=== PATIENT | male | born 1950 | race Caucasian/White ===

== ENCOUNTER → 2017-03-11 | Outpatient (CLI) | payer OTHER ==
[~2017-03-11] MED LIST: ALLO300T2 PO; ASPI81TA28 PO; PRLSR20 PO; VICODIN
[2017-03-11 15:13] LABS: BASO % 0.9 %; COMPLETE YES; EOS % 0.2 %; HEMATOCRIT 43.8 % (42-52); IG% 0.3 %; LYMPH % 12.2 %; LYMPH ABS # 1.41 K/uL (1.2-3.4); MEAN CELL VOLUME 105.5 fL (80-100); MEAN CORPUSCULAR HEMOGLOBIN 37.3 pg (25-34); MEAN CORPUSCULAR HGB CONC 35.4 g/dl (32-36); MEAN PLATELET VOLUME 9.8 fL (7.4-10.4); MONO % 8.1 %; NEUT % 78.3 %; PLATELET COUNT 227 K/uL (130-400); RED BLOOD COUNT 4.15 M/uL (4.7-6.1); WHITE BLOOD COUNT 11.56 K/uL (4.8-10.8)
[2017-03-11 15:21] LABS: ALT/SGPT 19 U/L (12-78); AST/SGOT 28 U/L (15-37); BLOOD UREA NITROGEN 12 mg/dl (7-18); BUN/CREATININE RATIO 11.8 (10-20); CALCIUM 8.8 mg/dl (8.5-10.1); CARBON DIOXIDE 25 mmol/L (21-32); CHLORIDE 105 mmol/L (98-107); CHOLESTEROL 159 mg/dl (0-200); CREATININE 0.99 mg/dl (0.60-1.40); GLUCOSE 105 mg/dl (70-99); POTASSIUM 4.2 mmol/L (3.5-5.1); SODIUM 139 mmol/L (136-145)
[2017-03-11 15:31] LABS: ALB/GLOB RATIO 0.9 (0.9-2); ALKALINE PHOSPHATASE 87 U/L (45-117); CHOLESTEROL/HDL RATIO 1.5; HDL CHOLESTEROL 105 mg/dl; TRIGLYCERIDES 79 mg/dl (0-150); VERY LOW DENSITY LIPOPROT CALC 16 mg/dl
== END | disposition home or self-care (01) ==
LOC: C.LABSPEC 14:44
PROVIDERS: ATTEND Internal Medicine
DX: R53.83 Other fatigue (principal); E78.5 Hyperlipidemia, unspecified; Z13.89 Encounter for screening for other disorder

== ENCOUNTER → 2017-04-09 | Outpatient (CLI) | payer OTHER | END | disposition home or self-care (01) | LOC: C.LABSPEC 15:36 | PROVIDERS: ATTEND Internal Medicine | DX: Z12.11 Encounter for screening for malignant neoplasm of colon (principal) ==

== ENCOUNTER 2022-03-04 18:33 | Observation (INO) ==
[2022-03-04 20:24] LABS: Basophils # (auto) 0.03 K/uL (0-0.2); Basophils % (auto) 0.4 %; Eosinophils # (auto) 0.03 K/uL (0-0.50); Eosinophils % (auto) 0.4 %; Hematocrit (blood only) 24.3 % (40.1-51.0); Hemoglobin 8.7 g/dl (14.0-18.0); Immature Granulocytes # (auto) 0.04 K/uL (0.00-0.02); Immature Granulocytes % (auto) 0.5 %; Lymphocytes # (auto) 1.28 K/uL (1.2-3.4); Lymphocytes % (auto) 16.7 %; Mean Corpuscular Hemoglobin 34.8 pg (25.0-34.0); Mean Corpuscular Hgb Conc 35.8 g/dL (32.0-36.0); Mean Corpuscular Volume 97.2 fL (80.0-100.0); Monocytes # (auto) 1.19 K/uL (0.24-0.82); Monocytes % (auto) 15.6 %; Neutrophils # (auto) 5.08 K/uL (1.4-6.5); Neutrophils % (auto) 66.4 %; Platelet Count 185 K/uL (130-400); RDW Coefficient of Variation 12.6 % (11.5-14.5); RDW Standard Deviation 43.6 fL (36.4-46.3); White Blood Count 7.65 K/ul (4.8-10.8)
[2022-03-04 20:37] LABS: INR 1.1 (0.9-1.1); Partial Thromboplastin Ratio 1.1; Prothrombin Time 11.6 Seconds (9.0-12.0)
--- NOTE | 2022-03-04 20:40 | XRay Report ---
XR chest 1V portable CLINICAL HISTORY: SOB TECHNIQUE: Single frontal radiograph of the chest was obtained. Comparison: Comparison is made to chest radiograph 12/19/2021 and PET/CT 12/12/2021 FINDINGS: No lines and tubes are seen. The cardiomediastinal silhouette is stable. Left hilar mass is again see n. There is an airspace opacity in the left lower lung. There is a small left pleural effusion, new f rom prior exam. IMPRESSION: 1. Airspace opacity in the left lower lung may represent atelectasis, pneumonia, and/or aspiration. There is a small left pleural effusion. 2. Redemonstration of left hilar mass. ACT 112: Negative or not required by law. Electronically signed by: Sachin Hopkins M.D. 03/04/2022 8:37 PM
[2022-03-04 20:51] LABS: Troponin I High Sensitivity 36.6 pg/ml (0-20)
[2022-03-04] MEDS ORDERED: SODIUM CHLORIDE 0.9% 1000ML 500 ML IV ONE (20:52)
--- NOTE | 2022-03-04 20:53 | Emergency Department Note ---
Impression & Plan Pneumonia ADMIT ED Provider Note HPI: The patient is a 71-year-old gentleman with history of adenocarcinoma of the lung, currently on chemotherapy, presents the emergency department with a chief complaint of 3 days of shortness of breath. Patient states that he was di scussing his symptoms with his outpatient provider and was advised to come to the emergency department to rule out a pulmonary embolism. On arrival to the ED the patient is hemodynamically stable, he is saturating well on room air, denies any chest pain but states that his shortness of breath has acutely worsened over the past 3 days. ROS: -Pulmonary: Shortness of breath *10 point review systems was conducted and is otherwise negative unless stated above *Outpatient medications and allergy history reviewed PE: General: Alert, NAD, frail-appearing HEENT: Normocephalic, atraumatic Eyes: Extraocular eye movement is intact, no scleral erythema Pulmonary: No wheezing, no crackles, diminished breath sounds at the bases bilaterally Cardio: Regular rate and rhythm GI: Abdomen is soft, nontender : No suprapubic tenderness MSK: No evidence of trauma or malformation of the extremities, no edema Skin: No evidence of rash Neuro: Alert, no focal deficits Psychiatric: Cooperative nuclear monitoring technician: - An order was placed for continuous cardiac monitoring - Patient was noted to be in sinus rhythm with a rate of 100 CTA CHEST: Comparison CT scan of the chest 01/03/2006 Cavitary process in the left lower lobe associated with dense atelectasis/consolidation. Subtending bronchi are partially opacified suggesting either inflammatory material or aspiration, potentially chronic. The cavitary process may reflect a cavitary pneumonia. Cavitary mass lesion not excluded and definitive evaluation is recommended. When compared with prior the processes new Respiratory motion artifact degrades the study through the bases no obvious PE is identified. The subsegmental basilar pulmonary artery branches at the left lung base demonstrate gradual loss of enhancement which is a nonspecific finding, potentially related to chronic airspace process resulting in altered perfusion. Radiologist: Sachin Garza MD EKG: Rate: 82 Rhythm: Sinus rhythm Intervals: QTC prolonged at 481 ms, otherwise within normal limits ST changes: No ST elevation Time: 1943 Medical Decision Making: The patient is a 71-year-old gentleman with history of adenocarcinoma of the lung, currently on chemotherapy, presented to the emergency department for further evaluation of shortness of breath for the past 3 days. Patient states that his outpatient provider was concerned about a possible pulmonary embolism and therefore the patient was referred to the ED for CT imaging. CT angiography of the chest was obtained that shows cavitary process in the left lower lobe, possible aspiration is noted on radiology read per stat read, also possibility of cavitary pneumonia. Patient was treated with IV Unasyn and IV azithromycin here in the ED, his lab work does not show any leukocytosis but he does have a slight left shift. Cultures were drawn prior to administration of antibiotics. Lab work also shows multiple electrolyte abnormalities including hypomagnesemia at 0.7, hypocalcemia, hypokalemia. No acute EKG changes are noted, patient is otherwise stable on telemetry here in the ED. I discussed all the above findings with the patient and his significant other at the bedside, patient is in agreement for admission at this time. [facility] and the patient was admitted in stable condition for further care. Diagnosis: 1. Cavitary pneumonia, left lower lobe 2. Hypomagnesemia 3. Hypocalcemia 4. Hypokalemia 5. Dyspnea, acute 6. 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 Brother Cancer Lung cancer Brother Kidney disease Cancer Social History Smoking Status: Former smoker Tobacco Type: Cigarettes Age Started Using Tobacco: 16; packs per day: 1; Cigarettes Per Day: 20; Second Hand Exposure: No; Hx Alcohol Use: Yes Alcohol type: beer Alcohol Intake Frequency: 4 or More x per/Week Hx Substance Use: No Preferred Language: Georgian Communication Ability: Effective Visual Impairment: No Limitations Hearing Ability: Normal Data Reduction Technician Required: No Beliefs That Will Affect Care: None marital status: Current Living Situation: Spouse current occupational status: retired 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 How many Children do You have: 2 Feels Safe at Home: Yes Diet Comment: regular caffeine: Yes during the past year weight has: remained stable Dental Care, Regularly: Yes Physical Activity Frequency: Daily Seatbelt Use: always Sunscreen Use: No Allergies Allergies Allergy/AdvReac Type Severity Reaction Status Date / Time doxycycline AdvReac Unknown VOMITING Verified 03/04/22 12:08 Home Meds Home Medications Medication Instructions Recorded Confirmed allopurinol 300 mg tablet 300 mg PO DAILY 11/20/21 03/05/22 omeprazole 20 mg capsule,delayed 20 mg PO DAILY 11/20/21 03/05/22 release olanzapine 2.5 mg tablet 2.5 mg PO DIRECTED 03/05/22 03/05/22 ondansetron HCl 8 mg tablet 8 mg PO Q8 PRN Nausea 03/05/22 03/05/22 Previous Rx's Medication Instructions Recorded losartan 50 mg tablet 50 mg PO DAILY #90 tabs 12/07/21 fluticasone fur. 100 mcg-umeclid 1 inh inhalation DAILY #60 ea 12/19/21 62.5 mcg-vilant 25 mcg inhalat.powder (Trelegy Ellipta) guaifenesin 400 mg tablet 400 mg PO TID PRN cough #60 tabs 12/31/21 folic acid 1 mg tablet 1 mg PO DAILY #30 tabs 01/28/22 metoprolol tartrate 50 mg tablet 50 mg PO BID #60 tabs 01/28/22 thiamine HCl (vitamin B1) 100 mg 100 mg PO DAILY #30 tabs 01/28/22 tablet albuterol sulfate 90 mcg/actuation 2 puff inhalation Q6H PRN 03/04/22 aerosol inhaler shortness of breath or wheezing #18 grams apixaban 5 mg tablet 5 mg PO BID #60 tabs 03/04/22 multivitamin 1 tab PO DAILY #90 tabs 03/04/22 Results & Data (ED) Vital Signs Vital Signs - 24 hr 03/04/22 19:13 03/04/22 22:50 03/04/22 23:00 Temperature 37.4 C Temperature Source Temporal Artery Scan Pulse Rate 89 83 78 Pulse Rate from SpO2 Sensor 83 79 Respiratory Rate 16 22 29 H Blood Pressure 141/74 H 166/82 H 158/86 H Blood Pressure Mean 96 110 110 Pulse Oximetry 94 95 98 Oxygen Delivery Method Room Air Sepsis Recent Fever Within 48 Hours No Sepsis New/Unexplained Change in Mental Status No Sepsis Action Taken by Nursing No Action Required 03/05/22 01:15 Temperature Temperature Source Pulse Rate 88 Pulse Rate from SpO2 Sensor 86 Respiratory Rate 21 Blood Pressure 151/74 H Blood Pressure Mean 99 Pulse Oximetry 94 Oxygen Delivery Method Room Air Sepsis Recent Fever Within 48 Hours Sepsis New/Unexplained Change in Mental Status Sepsis Action Taken by Nursing Laboratory Data Result diagrams: 03/04/22 20:05 03/04/22 20:05 Lab Results 03/04/22 03/04/22 03/04/22 Range/Units 20:05 20:05 20:05 WBC 7.65 (4.8-10.8) K/ul RBC 2.50 L (4.63-6.08) M/uL Hgb 8.7 L (14.0-18.0) g/dl Hct 24.3 L (40.1-51.0) % MCV 97.2 (80.0-100.0) fL MCH 34.8 H (25.0-34.0) pg MCHC 35.8 (32.0-36.0) g/dL RDW Std Deviation 43.6 (36.4-46.3) fL RDW Coeff of Glenda 12.6 (11.5-14.5) % Plt Count 185 (130-400) K/uL MPV 9.0 L (9.4-12.4) fL Immature Gran % (Auto) 0.5 % Neut % (Auto) 66.4 % Lymph % (Auto) 16.7 % Power % (Auto) 15.6 % Eos % (Auto) 0.4 % Baso % (Auto) 0.4 % Neut # (Auto) 5.08 (1.4-6.5) K/uL Lymph # (Auto) 1.28 (1.2-3.4) K/uL Power # (Auto) 1.19 H (0.24-0.82) K/uL Eos # (Auto) 0.03 (0-0.50) K/uL Baso # (Auto) 0.03 (0-0.2) K/uL Immature Gran # (Auto) 0.04 H (0.00-0.02) K/uL PT 11.6 (9.0-12.0) Seconds INR 1.1 (0.9-1.1) APTT 29.0 (21.0-31.0) Seconds PTT Ratio 1.1 Sodium 128 L (136-145) mmol/L Potassium 2.9 L (3.5-5.1) mmol/L Chloride 91 L (98-107) mmol/L Carbon Dioxide 27 (21-32) mmol/L Anion Gap 10 (3-11) BUN 14 (6-23) mg/dl Creatinine 1.00 (0.6-1.4) mg/dl Est Cr Clr Drug Dosing 60.8 ml/min Est GFR ( Amer) 88.6 ml/min Est GFR (Non-Af Amer) 76.5 ml/min BUN/Creatinine Ratio 14.0 (10-20) Glucose 104 H (70-99(Fasting)) mg/dl Calcium 7.1 L (8.5-10.1) mg/dl Magnesium 0.7 L* (1.7-2.4) mg/dl Total Bilirubin 0.3 (0.2-1.0) mg/dl AST 20 (13-39) U/L ALT 19 (7-52) U/L Alkaline Phosphatase 69 (34-104) U/L Troponin I High Sens 36.6 H (0-20) pg/ml Total Protein 6.4 (6.0-8.3) gm/dl Albumin 3.1 L (3.4-5.0) gm/dl Globulin 3.3 (2.5-4.0) gm/dl Albumin/Globulin Ratio 0.9 (0.9-2) SARS-CoV-2 (PCR) (Negative) Influenza Type A (PCR) (Neg) Influenza Type B (PCR) (Neg) RSV (RT-PCR) (Neg) 03/05/22 Range/Units 00:17 WBC (4.8-10.8) K/ul RBC (4.63-6.08) M/uL Hgb (14.0-18.0) g/dl Hct (40.1-51.0) % MCV (80.0-100.0) fL MCH (25.0-34.0) pg MCHC (32.0-36.0) g/dL RDW Std Deviation (36.4-46.3) fL RDW Coeff of Glenda (11.5-14.5) % Plt Count (130-400) K/uL MPV (9.4-12.4) fL Immature Gran % (Auto) % Neut % (Auto) % Lymph % (Auto) % Power % (Auto) % Eos % (Auto) % Baso % (Auto) % Neut # (Auto) (1.4-6.5) K/uL Lymph # (Auto) (1.2-3.4) K/uL Power # (Auto) (0.24-0.82) K/uL Eos # (Auto) (0-0.50) K/uL Baso # (Auto) (0-0.2) K/uL Immature Gran # (Auto) (0.00-0.02) K/uL PT (9.0-12.0) Seconds INR (0.9-1.1) APTT (21.0-31.0) Seconds PTT Ratio Sodium (136-145) mmol/L Potassium (3.5-5.1) mmol/L Chloride (98-107) mmol/L Carbon Dioxide (21-32) mmol/L Anion Gap (3-11) BUN (6-23) mg/dl Creatinine (0.6-1.4) mg/dl Est Cr Clr Drug Dosing ml/min Est GFR ( Amer) ml/min Est GFR (Non-Af Amer) ml/min BUN/Creatinine Ratio (10-20) Glucose (70-99(Fasting)) mg/dl Calcium (8.5-10.1) mg/dl Magnesium (1.7-2.4) mg/dl Total Bilirubin (0.2-1.0) mg/dl AST (13-39) U/L ALT (7-52) U/L Alkaline Phosphatase (34-104) U/L Troponin I High Sens (0-20) pg/ml Total Protein (6.0-8.3) gm/dl Albumin (3.4-5.0) gm/dl Globulin (2.5-4.0) gm/dl Albumin/Globulin Ratio (0.9-2) SARS-CoV-2 (PCR) NEGATIVE (Negative) Influenza Type A (PCR) Negative (Neg) Influenza Type B (PCR) Negative (Neg) RSV (RT-PCR) Negative (Neg) Administered Medications Discontinued Medications Sodium Chloride (Nss 1000ml) 500 mls @ 999 mls/hr IV .Q31M ONE Stop: 03/04/22 21:22 Last Infusion: 03/04/22 23:53 Dose: 0 mls/hr Documented By: Admin: 03/04/22 21:28 Dose: 999 mls/hr Documented By: RAYMOND Magnesium Sulfate/Dextrose (Magnesium Sulfate / D5w) 1 gm in 100 mls @ 200 mls/hr IV Q30M [id number] Stop: 03/04/22 22:16 Last Infusion: 03/04/22 23:53 Dose: 0 mls/hr Documented By: Admin: 03/04/22 22:49 Dose: 200 mls/hr Documented By: [id number] Infusion: 03/04/22 22:49 Dose: 200 mls/hr Documented By: [id number] Admin: 03/04/22 22:30 Dose: 200 mls/hr Documented By: [id number] Calcium Gluconate () 1,000 mg in 60 mls @ 240 mls/hr IV NOW STA Stop: 03/04/22 21:32 Last Infusion: 03/04/22 21:49 Dose: 0 mls/hr Documented By: Admin: 03/04/22 21:33 Dose: 240 mls/hr Documented By: RAYMOND Ampicillin Sodium/Sulbactam Sodium 3,000 mg/ Sodium Chloride 108 mls @ 200 mls/hr IV NOW STA; Protocol Stop: 03/05/22 00:26 Last Infusion: 03/05/22 02:43 Dose: 0 mls/hr Documented By: Infusion: 03/05/22 01:16 Dose: 200 mls/hr Documented By: Infusion: 03/05/22 00:27 Dose: 0 mls/hr Documented By: Admin: 03/05/22 00:15 Dose: 200 mls/hr Documented By: Ioversol (Optiray 300 500ml) 109 ml IV ONCE ONE Stop: 03/04/22 22:22 Last Admin: 03/04/22 22:21 Dose: 109 ml Documented By: [email or web address] Potassium Chloride (Potassium Chloride Pwd 20 Meq Pack) 40 meq PO ONCE ONE Stop: 03/04/22 21:19 Last Admin: 03/04/22 22:30 Dose: 40 meq Documented By: [id number] Imaging Data Radiologist's Impression: Chest X-Ray 03/04/22 19:16 XR chest 1V portable CLINICAL HISTORY: SOB TECHNIQUE: Single frontal radiograph of the chest was obtained. Comparison: Comparison is made to chest radiograph 12/19/2021 and PET/CT 12/12/2021 FINDINGS: No lines and tubes are seen. The cardiomediastinal silhouette is stable. Left hilar mass is again seen. There is an airspace opacity in the left lower lung. There is a small left pleural effusion, new from prior exam. IMPRESSION: 1. Airspace opacity in the left lower lung may represent atelectasis, pneumonia, and/or aspiration. There is a small left pleural effusion. 2. Redemonstration of left hilar mass. ACT 112: Negative or not required by law. Electronically signed by: Sachin Hopkins M.D. 03/04/2022 8:37 PM Discharge Plan Visit Data Chief Complaint: Referred by Doctor Stated Complaint: LUNG CANCER, REF FOR POSS BLOOD CLOTS ED Provider: Luis Moreno Discharge Problem: Pneumonia Patient Disposition: Admitted As Inpatient Discharge Instructions Interventions: ED Discharge Assessment Last Done: 03/05/22 02:41 : Pneumonia Qualifiers: Pneumonia type: due to unspecified organism Laterality: left Lung location: lower lobe of lung Qualified Code(s): J18.9 - Pneumonia, unspecified organism
[2022-03-04 20:57] LABS: Calcium 7.1 mg/dl (8.5-10.1); Creatinine Clr Calc Pharmacy 60.8 ml/min; Est GFR (African American) 88.6 ml/min; Est GFR (Non-African American) 76.5 ml/min; Potassium 2.9 mmol/L (3.5-5.1)
[2022-03-04 21:13] LABS: Albumin Globulin Ratio 0.9 (0.9-2); Albumin Level 3.1 gm/dl (3.4-5.0); Bilirubin,Total 0.3 mg/dl (0.2-1.0); Globulin 3.3 gm/dl (2.5-4.0); Magnesium 0.7 mg/dl (1.7-2.4); Total Protein 6.4 gm/dl (6.0-8.3)
[2022-03-04] MEDS ORDERED: CALCIUM GLUCONATE 1,000 MG/60 ML BAG IV STA (21:18)
[2022-03-04] MEDS ORDERED: POTASSIUM CHLORIDE PWD 20 MEQ PACK PO ONE (21:18)
[2022-03-04] MEDS ORDERED: OPTIRAY 300 500mL IV ONE (22:21)
[2022-03-04] MEDS: MAGNESIUM SULFATE / D5W 1 GM/100 ML BAG IV SCH ×2 (22:30→22:49)
[2022-03-04] MEDS ORDERED: AZITHROMYCIN 500 MG in DEXTROSE 5% 250 ML IV ONE (23:54)
[2022-03-04] MEDS ORDERED: AMPICILLIN/SULBACTAM SOD 3,000 MG in 0.9 % SODIUM CHLORIDE 100 ML IV STA (23:54)
[2022-03-05 01:23] LABS: Influenza A virus by PCR Negative (Neg); Influenza B virus by PCR Negative (Neg); RSV by PCR Negative (Neg); SARS CoV2 RNA(COVID-19) InHosp NEGATIVE (Negative)
--- NOTE | 2022-03-05 01:23 | History & Physical Report ---
Date of Service March 05, 2022 Assessment & Plan (1) Cavitary pneumonia: Plan: Cavitary lung lesion left lower lobe/adenocarcinoma of left lung stage III/COPD exacerbation- Vancomycin IV per pharmacokinetic monitoring Unasyn 3 g IV every 6 hours Duonebs every 4 hours while awake and every 2 hours when necessary. Methylprednisolone 40 mg IV every 8 hours Guaifenesin extended release 1200 mg p.o. twice daily Sputum gram stain and culture (2) Hypomagnesemia: Plan: Hypomagnesemia/hypokalemia Magnesium 0.7 upon admission Receiving 2 g IV from the ED Give additional 3 g for total of 5 g IV then repeat laboratories in a.m. Replace potassium 40 mEq p.o. NSS + KCl 20 mill equivalents at 100 mils per hour (3) Adenocarcinoma of left lung, stage 3: (4) Cavitating mass of lower lobe of left lung: (5) Atrial flutter: Plan: Atrial flutter/hypertension- Continue apixaban, losartan, metoprolol tartrate (6) Hypertension: Plan: See above (7) Tobacco abuse: Plan: Tobacco cessation counseling (8) COPD (chronic obstructive pulmonary disease): Plan: See above (9) Acid reflux: Plan: Continue omeprazole/pantoprazole (10) Gout: Plan: Continue allopurinol History of Present Illness Chief Complaint: The patient is referred to the emergency department by his outpatient provider, due to 3 days of worsening shortness of breath, and decreased oral intake, with the concern regarding possible pulmonary embolism Primary Care Provider: DOTTIE Robles The patient is a 71-year-old male with past medical history including adenocarcinoma of left lung stage III, cavitating mass of left lower lobe of lung, peripheral vascular disease, hypertension, tobacco abuse, COPD, acid reflux, gout, and atrial flutter. The patient presents with symptoms as noted above. Allergies Allergy/AdvReac Type Severity Reaction Status Date / Time doxycycline AdvReac Unknown VOMITING Verified 03/04/22 12:08 Home Medications Medication Instructions Recorded Confirmed Type allopurinol 300 mg tablet 300 mg PO DAILY 11/20/21 03/05/22 History omeprazole 20 mg capsule,delayed 20 mg PO DAILY 11/20/21 03/05/22 History release losartan 50 mg tablet 50 mg PO DAILY #90 tabs 12/07/21 03/05/22 Rx fluticasone fur. 100 mcg-umeclid 1 inh inhalation DAILY #60 ea 12/19/21 03/05/22 Rx 62.5 mcg-vilant 25 mcg inhalat.powder (Trelegy Ellipta) guaifenesin 400 mg tablet 400 mg PO TID PRN cough #60 tabs 12/31/21 03/05/22 Rx folic acid 1 mg tablet 1 mg PO DAILY #30 tabs 01/28/22 03/05/22 Rx metoprolol tartrate 50 mg tablet 50 mg PO BID #60 tabs 01/28/22 03/05/22 Rx thiamine HCl (vitamin B1) 100 mg 100 mg PO DAILY #30 tabs 01/28/22 03/05/22 Rx tablet albuterol sulfate 90 mcg/actuation 2 puff inhalation Q6H PRN 03/04/22 03/05/22 Rx aerosol inhaler shortness of breath or wheezing #18 grams apixaban 5 mg tablet 5 mg PO BID #60 tabs 03/04/22 03/05/22 Rx multivitamin 1 tab PO DAILY #90 tabs 03/04/22 03/05/22 Rx olanzapine 2.5 mg tablet 2.5 mg PO DIRECTED 03/05/22 03/05/22 History ondansetron HCl 8 mg tablet 8 mg PO Q8 PRN Nausea 03/05/22 03/05/22 History Past Med/Surg History Medical History Adenocarcinoma of left lung, stage 3 Atrial flutter Blood clot in vein Cavitating mass of lower lobe of left lung COPD (chronic obstructive pulmonary disease) Hypertension PVD (peripheral vascular disease) Tobacco abuse Surgical History History of neck surgery S/P bronchoscopy with bronchoalveolar lavage Family History Father Stroke Heart disease Myocardial infarction Mother Myocardial infarction Diabetes Sister No problems noted. Brother Cancer Lung cancer Brother Kidney disease Cancer Social History Smoking Status: Former smoker Tobacco Type: Cigarettes Age Started Using Tobacco: 16; packs per day: 1; Cigarettes Per Day: 20; Second Hand Exposure: No; Do You Dip or Chew Tobacco: No; Tobacco Cessation Education Requested by Patient: No Hx Alcohol Use: Yes Alcohol type: beer Alcohol Intake Frequency: 4 or More x per/Week Hx Substance Use: No Preferred Language: Romansh Communication Ability: Effective Visual Impairment: No Limitations Hearing Ability: Normal [place] Net Or Trap Required: No Beliefs That Will Affect Care: None marital status: Current Living Situation: Spouse current occupational status: retired 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 How many Children do You have: 2 Other Information That Helps Us Care for You: No Feels Safe at Home: Yes Safety Concerns: Feels Safe At This Time Diet Comment: regular caffeine: Yes during the past year weight has: remained stable Dental Care, Regularly: Yes Physical Activity Frequency: Daily Seatbelt Use: always Sunscreen Use: No Assistive Devices: None Review of Systems Review of Systems: The patient denies chest pain, palpitations, cough, lower extremity swelling, sore throat, fevers, chills, sweats, nausea, vomiting, diarrhea , constipation, abdominal pain, pelvic pain, blood in urine or stool, dysuria, urinary frequency or urgency, lightheadedness, dizziness, headache, memory loss, loss of consciousness, rash, abnormal bruising or bleeding, imbalance, focal weakness, numbness or tingling in arms or legs, neck pain, or night sweats. The review of systems is otherwise negative other than for that already noted above, and at least 10 systems have been reviewed. Physical Exam Physical Exam: The patient is awake, alert and oriented 3, well developed and well nourished, normocephalic and atraumatic, lying in bed and in no acute distress. HEENT--PERRL, EOMI, mucous membranes and oropharynx dry. Neck--supple. No JVD. No bruits. Thyroid normal, trachea midline, no kannan nopathy. Heart--normal S1 and S2. No murmurs, rubs or gallops. Lungs--coarse breath sounds bilaterally, left greater than right. No respiratory distress, no accessory muscle use. Abdomen--normal bowel sounds and soft. Nontender. Nondistended, no hernias or masses, no organomegaly. Extremities--no cyanosis or clubbing. No edema. Dermatologic--normal skin turgor, normal color, no abnormal lymph nodes, no rash. Neurologic--cranial nerves II through XII grossly intact. Rheumatologic--normal range of motion. Psychiatric--normal affect. Results & Data Results & Data ([facility]) Vital Signs (Past 12 Hours) Vital Signs Temp Pulse Resp BP Pulse Ox O2 Del Method 03/05/22 01:15 88 21 151/74 H 94 Room Air 03/04/22 23:00 78 29 H 158/86 H 98 03/04/22 22:50 83 22 166/82 H 95 03/04/22 19:13 37.4 C 89 16 141/74 H 94 Room Air Laboratory Results Laboratory Results WBC 7.65 K/ul (4.8-10.8) 03/04/22 20:05 RBC 2.50 M/uL (4.63-6.08) L 03/04/22 20:05 Hgb 8.7 g/dl (14.0-18.0) L 03/04/22 20:05 Hct 24.3 % (40.1-51.0) L 03/04/22 20:05 MCV 97.2 fL (80.0-100.0) 03/04/22 20:05 MCH 34.8 pg (25.0-34.0) H 03/04/22 20:05 MCHC 35.8 g/dL (32.0-36.0) 03/04/22 20:05 RDW Std Deviation 43.6 fL (36.4-46.3) 03/04/22 20:05 RDW Coeff of Glenda 12.6 % (11.5-14.5) 03/04/22 20:05 Plt Count 185 K/uL (130-400) 03/04/22 20:05 MPV 9.0 fL (9.4-12.4) L 03/04/22 20:05 Immature Gran % (Auto) 0.5 % 03/04/22 20:05 Neut % (Auto) 66.4 % 03/04/22 20:05 Lymph % (Auto) 16.7 % 03/04/22 20:05 [place] % (Auto) 15.6 % 03/04/22 20:05 Eos % (Auto) 0.4 % 03/04/22 20:05 Baso % (Auto) 0.4 % 03/04/22 20:05 Neut # (Auto) 5.08 K/uL (1.4-6.5) 03/04/22 20:05 Lymph # (Auto) 1.28 K/uL (1.2-3.4) 03/04/22 20:05 [place] # (Auto) 1.19 K/uL (0.24-0.82) H 03/04/22 20:05 Eos # (Auto) 0.03 K/uL (0-0.50) 03/04/22 20:05 Baso # (Auto) 0.03 K/uL (0-0.2) 03/04/22 20:05 Immature Gran # (Auto) 0.04 K/uL (0.00-0.02) H 03/04/22 20:05 PT 11.6 Seconds (9.0-12.0) 03/04/22 20:05 INR 1.1 (0.9-1.1) 03/04/22 20:05 APTT 29.0 Seconds (21.0-31.0) 03/04/22 20:05 PTT Ratio 1.1 03/04/22 20:05 Sodium 128 mmol/L (136-145) L 03/04/22 20:05 Potassium 2.9 mmol/L (3.5-5.1) L 03/04/22 20:05 Chloride 91 mmol/L (98-107) L 03/04/22 20:05 Carbon Dioxide 27 mmol/L (21-32) 03/04/22 20:05 Anion Gap 10 (3-11) 03/04/22 20:05 BUN 14 mg/dl (6-23) 03/04/22 20:05 Creatinine 1.00 mg/dl (0.6-1.4) 03/04/22 20:05 Est Cr Clr Drug Dosing 60.8 ml/min 03/04/22 20:05 Est GFR ( Amer) 88.6 ml/min 03/04/22 20:05 Est GFR (Non-Af Amer) 76.5 ml/min 03/04/22 20:05 BUN/Creatinine Ratio 14.0 (10-20) 03/04/22 20:05 Glucose 104 mg/dl (70-99(Fasting)) H 03/04/22 20:05 Calcium 7.1 mg/dl (8.5-10.1) L 03/04/22 20:05 Magnesium 0.7 mg/dl (1.7-2.4) L* 03/04/22 20:05 Total Bilirubin 0.3 mg/dl (0.2-1.0) 03/04/22 20:05 AST 20 U/L (13-39) 03/04/22 20:05 ALT 19 U/L (7-52) 03/04/22 20:05 Alkaline Phosphatase 69 U/L (34-104) 03/04/22 20:05 Troponin I High Sens 36.6 pg/ml (0-20) H 03/04/22 20:05 Total Protein 6.4 gm/dl (6.0-8.3) 03/04/22 20:05 Albumin 3.1 gm/dl (3.4-5.0) L 03/04/22 20:05 Globulin 3.3 gm/dl (2.5-4.0) 03/04/22 20:05 Albumin/Globulin Ratio 0.9 (0.9-2) 03/04/22 20:05 SARS-CoV-2 (PCR) NEGATIVE (Negative) 03/05/22 00:17 Influenza Type A (PCR) Negative (Neg) 03/05/22 00:17 Influenza Type B (PCR) Negative (Neg) 03/05/22 00:17 RSV (RT-PCR) Negative (Neg) 03/05/22 00:17 Impressions Chest X-Ray 03/04/22 19:16 XR chest 1V portable CLINICAL HISTORY: SOB TECHNIQUE: Single frontal radiograph of the chest was obtained. Comparison: Comparison is made to chest radiograph 12/19/2021 and PET/CT 12/12/2021 FINDINGS: No lines and tubes are seen. The cardiomediastinal silhouette is stable. Left hilar mass is again seen. There is an airspace opacity in the left lower lung. There is a small left pleural effusion, new from prior exam. IMPRESSION: 1. Airspace opacity in the left lower lung may represent atelectasis, pneumonia, and/or aspiration. There is a small left pleural effusion. 2. Redemonstration of left hilar mass. ACT 112: Negative or not required by law. Electronically signed by: Sachin Hopkins M.D. 03/04/2022 8:37 PM Diagnostic Findings [facility] Patient: RANDY SAGASTUME (Male) : 54 Status: ER Date: 03/04/22 22:26 Room #: History: Pt arrives via walk-in, history of lung cancer-sent in by pcp for CT chest to r/o PE due to inc. sob x3 days Ran out of blood thinner recently, poor historian for Slices: [phone] Priors: Tech: Register, Matt @ [phone] Exams:K CTA CHEST Contrast: IV Amt: 109 Accession Numbers: [id number] Referring Physician: GEOVANNI RG Preliminary Findings Only See Final Report For Complete Findings CTA CHEST: Comparison CT scan of the chest 01/03/2006 Cavitary process in the left lower lobe associated with dense atelectasis/consolidation. Subtending bronchi are partially opacified suggesting either inflammatory material or aspiration, potentially chronic. The cavitary process may reflect a cavitary pneumonia. Cavitary mass lesion not excluded and definitive evaluation is recommended. When compared with prior the processes new Respiratory motion artifact degrades the study through the bases no obvious PE is identified. The subsegmental basilar pulmonary artery branches at the left lung base demonstrate gradual loss of enhancement which is a nonspecific finding, potentially related to chronic airspace process resulting in altered perfusion. Radiologist: Sachin Garza MD Study ready at 22:31 and initial results transmitted at 22:39 *This report constitutes a preliminary interpretation only. Non-acute findings felt to be unrelated to the clinical presentation may not be discussed in this report. The study will be interpreted and a final report will be generated by the local Radiologist the following shift. To reach the hospital radiology department call [phone]. If a discrepancy is found between the preliminary and final interpretations of this study, please notify us via our Client Portal at [email or web address], under QA Exams. You can also fax this report with a description of the discrepancy, or include the final report, to o [facility] fax number [phone]. If faxing, please indicate the severity of discrepancy using one of the following categories: [ ] 1 - Agree/Informational [ ] 2 - Unlikely to Affect Management [ ] 3 - Possible Eventual Change of Management [ ] 4 - Probable Immediate Change of Management For all other patient related information, please fax us at [phone]. [id number] Code Status & VTE Plan Code Status full code VTE Prophylaxis Plan VTE Prophylaxis will be ordered: Yes PG Care Time/CCT Total # of Minutes Spent Total Time Spent with Patient: Total time spent is greater than 50% in coordination of care (as documented) at patient's floor/unit and/or counseling patient: Coding Level of Care Code 37687 Initial Inpt Care Lvl 3 Diagnoses Cavitary pneumonia J18.9; J98.4 Hypomagnesemia E83.42 Adenocarcinoma of left lung, stage 3 C34.92 Cavitating mass of lower lobe of left lung J98.4 Atrial flutter I48.92 Hypertension I10 Tobacco abuse Z72.0 COPD (chronic obstructive pulmonary disease) J44.9 Acid reflux K21.9 Gout M10.9
[2022-03-05] MEDS ORDERED: ONDANSETRON INJ 2 MG/ML 2 ML VIAL IV PRN (02:39)
[2022-03-05] MEDS ORDERED: ACETAMINOPHEN 325 MG TAB PO PRN (02:39)
[2022-03-05] MEDS ORDERED: VANCOMYCIN CONSULT ACTIVE PRN (02:39)
[2022-03-05] MEDS ORDERED: VANCOMYCIN HCL 1,250 MG in SODIUM CHLORIDE 0.9% 250 ML IV ONE (03:00)
[2022-03-05] MEDS: methylPREDNISolone 40 MG in SYRINGE 0 ML IV SCH ×2 (03:54→11:15)
[2022-03-05] MEDS: NSS + 20MEQ KCL 20 MEQ/1,000 ML BAG IV SCH ×2 (03:55→14:10)
[2022-03-05] MEDS: MAGNESIUM SULFATE / D5W 1 GM/100 ML BAG IV SCH ×5 (04:01→18:02)
[2022-03-05 06:35] LABS: Basophils # (auto) 0.03 K/uL (0-0.2); Basophils % (auto) 0.4 %; Eosinophils # (auto) 0.02 K/uL (0-0.50); Eosinophils % (auto) 0.2 %; Hematocrit (blood only) 22.5 % (40.1-51.0); Hemoglobin 8.2 g/dl (14.0-18.0); Immature Granulocytes # (auto) 0.03 K/uL (0.00-0.02); Immature Granulocytes % (auto) 0.4 %; Lymphocytes # (auto) 0.43 K/uL (1.2-3.4); Lymphocytes % (auto) 5.3 %; Mean Corpuscular Hemoglobin 34.2 pg (25.0-34.0); Mean Corpuscular Hgb Conc 36.4 g/dL (32.0-36.0); Mean Corpuscular Volume 93.8 fL (80.0-100.0); Neutrophils # (auto) 7.13 K/uL (1.4-6.5); Neutrophils % (auto) 88.7 %; Platelet Count 192 K/uL (130-400); RDW Coefficient of Variation 12.6 % (11.5-14.5); RDW Standard Deviation 42.9 fL (36.4-46.3); White Blood Count 8.04 K/ul (4.8-10.8)
[2022-03-05] MEDS: AMPICILLIN/SULBACTAM SOD 3,000 MG in 0.9 % SODIUM CHLORIDE 100 ML IV SCH ×2 (06:39→11:45)
[2022-03-05 06:47] LABS: INR 1.1 (0.9-1.1); Prothrombin Time 11.4 Seconds (9.0-12.0)
[2022-03-05] MEDS: ALBUT/IPRATROP 3MG/0.5MG NEB 3 ML VIAL NEB SCH ×4 (07:19→19:59)
[2022-03-05 07:23] LABS: Albumin Globulin Ratio 0.9 (0.9-2); Albumin Level 2.9 gm/dl (3.4-5.0); BUN Creatinine Ratio 13.3 (10-20); Bilirubin,Total 0.4 mg/dl (0.2-1.0); Calcium 7.4 mg/dl (8.5-10.1); Creatinine Clr Calc Pharmacy 86.1 ml/min; Est GFR (African American) 100.6 ml/min; Est GFR (Non-African American) 86.8 ml/min; Globulin 3.3 gm/dl (2.5-4.0); Potassium 3.7 mmol/L (3.5-5.1); Total Protein 6.2 gm/dl (6.0-8.3)
[2022-03-05] MEDS: APIXABAN 5 MG TABLET PO SCH ×2 (07:51→21:13)
[2022-03-05] MEDS: allopurinoL 300 MG TAB PO SCH (07:51)
[2022-03-05] MEDS: FLUTICASONE FUROATE 100MCG 14 PUFFS/INHALER INH SCH (07:51)
[2022-03-05] MEDS: FOLIC ACID 1 MG TAB PO SCH (07:52)
[2022-03-05] MEDS: guaiFENesin 600 MG TABCR PO SCH ×2 (07:52→21:14)
[2022-03-05] MEDS: LOSARTAN POTASSIUM 50 MG TAB PO SCH (07:52)
[2022-03-05] MEDS: METOPROLOL TARTRATE 50 MG TAB PO SCH ×2 (07:53→21:14)
[2022-03-05] MEDS: MULTIVITAMIN TAB PO SCH (07:54)
[2022-03-05] MEDS: PANTOprazole 40 MG TAB PO SCH (07:54)
[2022-03-05] MEDS: THIAMINE HCL 100 MG TAB PO SCH (07:54)
[2022-03-05] MEDS: UMECLIDINIUM/VILANTEROL 62.5/25MCG 7 PUFFS/INHALER INH SCH (07:55)
[2022-03-05] MEDS ORDERED: NON-FORMULARY MEDICATION (Fluticasone-Umeclidin-Vilanter [Trelegy Ellipta] 100-62.5-25 mcg INH SCH (09:00)
--- NOTE | 2022-03-05 09:39 | CT Scan Report ---
CT ANGIOGRAM OF THE CHEST CLINICAL HISTORY: Dyspnea. Lung cancer. COMPARISON STUDY: Chest x-ray dated 03/04/2022. Chest CT dated 11/15/2021. PET/CT dated 12/12/2021. TECHNIQUE: Following the IV administration of 109 cc of Optiray 300, CT angiogram of the chest was pe rformed from the upper abdomen to the thoracic inlet utilizing the pulmonary embolus protocol. Images are reviewed in the axial, sagittal, and coronal planes. 3-D MIPS images are created and assessed. I V contrast was administered without complication. A dose lowering technique was utilized adhering to the principles of ALARA. CT DOSE: 396.42 mGy.cm FINDINGS: Thyroid: Normal in size and heterogeneous in attenuation. Thoracic aorta: There is atherosclerotic calcification of the thoracic aorta, which is normal in griselda martin and demonstrates standard 3-vessel arch anatomy. No dissection is seen. Pulmonary vasculature: The main pulmonary arteries are dilated suggesting pulmonary artery hypertensi on. There are no filling defects identified in main, lobar, or segmental pulmonary branches typical f or acute pulmonary embolus. There are numerous small chronic appearing pulmonary emboli identified. T hese are seen within the right lower lobe pulmonary artery (images #156 and #157), in the left upper lobe pulmonary artery (image #201), and in the left lower lobe pulmonary artery (image #173 and #191) . There is suboptimal contrast opacification of the left lower lobe pulmonary arteries. Heart: The heart is enlarged and without pericardial effusion. Lungs and pleural spaces: There is moderate emphysema. A cavitary mass lesion is again seen at the le ft lung base. Cavitation is increased from 11/15/2021. The lesion measures approximately 6 x 4 cm on to day's examination. There is a small left pleural effusion with left basilar consolidation. The trache a is clear. Debris is seen within the left mainstem bronchus and filling the left lower lobe airways. There is a parenchymal scarring are seen throughout both lungs. There is diffuse intralobular septal thickening. Mediastinum: There are several mildly enlarged mediastinal lymph nodes. AP window nodes measure up to 12 mm in short axis. Candice: Enlarged left hilar nodes measure up to 13 mm in short axis. No right hilar adenopathy is seen. Axillae: There is no axillary lymphadenopathy. Upper abdomen: There is atherosclerotic calcification of the abdominal aorta. Partially visualized up per abdominal viscera is otherwise grossly unremarkable. Skeletal structures: The skeletal structures are osteopenic. Fusion hardware is noted in the lower ce rvical spine. No lytic or blastic bony lesions are seen. There is chronic posttraumatic deformity of the manubrium. IMPRESSION: 1. There are no filling defects typical for acute pulmonary embolus identified in the main, lobar, or segmental pulmonary arteries. 2. Numerous small chronic appearing pulmonary emboli are seen bilaterally. 3. Cardiomegaly and emphysema. Intralobular septal thickening suggests fluid overload/congestive fail ure and clinical correlation will be required. 4. A centrally necrotic mass lesion is again seen at the left lung base and is consistent with the pa gurvinder's known history of lung cancer. The degree of cavitation appears increased from previous. 5. Small left pleural effusion with bibasilar consolidation. Additionally, there is debris filling th e left lower lobe airways. Correlate clinically for evidence of pneumonia/aspiration pneumonitis. 6. There are mildly enlarged left hilar and mediastinal lymph nodes. These have increased in size fro m previous and may be reactive. 7. Additional findings as above. ACT 112: Negative or not required by law. Electronically signed by: Cayetano Robledo M.D. 03/05/2022 9:36 AM
[2022-03-05] MEDS ORDERED: VANCOMYCIN HCL 1,000 MG in SODIUM CHLORIDE 0.9% 250 ML IV SCH (14:00)
--- NOTE | 2022-03-05 14:07 | Hospitalist Progress Note ---
Date of Service March 05, 2022 Assessment & Plan (1) Cavitary pneumonia: Plan: Left lower lobe area. Chest CTA is abnormal. He appears to have chronic bilateral pulmonary emboli but nothing acute. Cavitation could be within the left lower lobe carcinoma. Sputum culture requested. Pulmonary medicine consultation requested. Continue intravenous vancomycin and Unasyn. Sputum culture requested. (2) Hypomagnesemia: Plan: Hypomagnesemia/hypokalemia. Replacement therapy. Serial labs (3) Adenocarcinoma of left lung, stage 3: Plan: Known diagnosis. See chest CTA report. (4) Cavitating mass of lower lobe of left lung: Plan: Could be cavitation of known lung cancer. However, currently being treated for the possibility of cavitary pneumonia. Pulmonary medicine consultation pending (5) Atrial flutter: Plan: Atrial flutter/hypertension. Treated with apixaban, losartan, metoprolol tartrate (6) Hypertension: Plan: Controlled with losartan and metoprolol (7) Tobacco abuse: Plan: Tobacco cessation recommended (8) Acid reflux: Plan: Continue omeprazole/pantoprazole (9) Gout: Plan: Continue allopurinol (10) Acute exacerbation of chronic obstructive pulmonary disease (COPD): Plan: Treat underlying pneumonia. Intravenous antibiotics. Intravenous steroids and nebulizer treatments. Await pulmonary medicine consultation and recommendations Plan To be determined Admission and Anticipated Discharge Date Admission Date: March 05, 2022 Subjective Alert and oriented. No distress. Pleasant. The cavity in the left lower lobe may be due to underlying malignancy. He is currently being treated as cavitary pneumonia however. He is on vancomycin and Unasyn. Pulmonary medicine consultation requested. Chest CTA report is markedly abnormal. Recent cardiac echo reveals ejection fraction of 50%. No clinical congestive heart failure. BNP level is ordered. Magnesium level needs to be rechecked. Potassium is 3.7. Review of Systems Review of Systems: Constitutional-no fever or chills ENT-no blurred vision, no double vision, no epistaxis, no sore throat Respiratory-worsening shortness of breath. No overt orthopnea. No hemoptysis. No significant sputum production Cardiac-no palpitations, no chest pain, no syncope GI-no nausea, vomiting, diarrhea, melena, hematochezia -no urinary retention, no urinary incontinence, no dysuria, no hematuria Musculoskeletal-no joint pain, no muscle tenderness Skin-no bruising, no rashes, no pruritus Neuro-no isolated weakness, no paresthesia, no weakness Psych-no depression, no anxiety Physical Exam Physical Exam: In's general-alert and oriented x3, no fevers, no chills HEENT-head atraumatic and normocephalic, pupils equal and reactive to light, extraocular muscles intact Neck-no lymphadenopathy or thyromegaly, trachea midline Chest-diminished breath sound bilaterally. Scattered rhonchi. Faint bilateral end expiratory wheezes. Cardiac-regular rate and rhythm, normal S1 and S2, no murmurs Abdomen-normal bowel sounds, nontender, no hepatosplenomegaly Extremities-no cyanosis, clubbing, or edema Neuro-cranial nerves II through XII intact, motor and sensory function within normal limits, strength symmetrical , no focal deficits Psych-normal affect, normal mood Results & Data Results & Data ([facility]) Vital Signs (Past 12 Hours) Vital Signs Temp Pulse Pulse Resp BP Pulse Ox O2 Del Method 03/05/22 11:12 68 16 96 Room Air 03/05/22 10:45 36.5 C 70 18 132/72 97 Room Air 03/05/22 08:00 Room Air 03/05/22 07:44 36.4 C L 86 18 145/81 H 93 Room Air 03/05/22 07:19 80 18 94 Room Air 03/05/22 04:34 96 H 03/05/22 04:31 Room Air 03/05/22 03:16 36.6 C 93 H 15 144/85 H 95 Room Air 03/05/22 02:41 Room Air Laboratory Results 03/05/22 06:16 03/05/22 06:16 PG Care Time/CCT Total # of Minutes Spent Total Time Spent with Patient: Total time spent is greater than 50% in coordination of care (as documented) at patient's floor/unit and/or counseling patient: Coding Level of Care Code 30609 Subseq Hosp Care Lvl 3 Diagnoses Cavitary pneumonia J18.9; J98.4 Hypomagnesemia E83.42 Adenocarcinoma of left lung, stage 3 C34.92 Cavitating mass of lower lobe of left lung J98.4 Atrial flutter I48.92 Hypertension I10 Tobacco abuse Z72.0 Acid reflux K21.9 Gout M10.9 Acute exacerbation of chronic obstructive pulmonary disease (COPD) J44.1
--- NOTE | 2022-03-05 14:20 | Pharmacy Report ---
Pharmacy PK ABX Note - Date of Service March 05, 2022 - Assessment and Plan Assessment 71 year old M receiving Vancomycin for treatment of Pneumonia. Blood cultures pending. Day #1 of antimicrobial therapy. Plan Vancomycin * Loading dose: 1250 mg IV x 1 given around 04:00 today. * Maintenance dose: 1000 mg IV every 12 hours ordered to start at 14:00 today. * Regimen is predicted to achieve target AUC/BRIANNA of 400-600 mg/L.hr Estimated t1/2 = 13.6 hrs. * Trough level ordered for: 03/06/22 before dose at 14:00 Pharmacy will continue to follow and will adjust dose/frequency as necessary. Thank you. Pharmacy has transitioned to AUC monitoring for vancomycin. AUC/BRIANNA is the preferred PK/PD target and is associated with decreased risk of nephrotoxicity compared to traditional trough targets.
--- NOTE | 2022-03-05 16:55 | Pulmonary Consultation ---
Date of Consultation March 05, 2022 Assessment & Plan (1) Cavitating mass of lower lobe of left lung: (2) COPD (chronic obstructive pulmonary disease): Plan Impression: 71-year-old male with stage IIIa adenocarcinoma the lung currently undergoing neoadjuvant chemotherapy. He was admitted with shortness of breath. His CT scan shows cavitary mass in the left lower lobe consistent with the patient's diagnosis of lung cancer. He has no signs or symptoms to suggest pneumonia and I do not think this is a cavitary infection. Rather I suspect this is a large tumor mass with central necrosis. Recommendations: 1. Stage IIIa adenocarcinoma of the lung: I think it is in the patient's best interest to continue to receive chemotherapy. His next cycle is scheduled to start on . Would recommend interfacing with medical oncology and doing everything we can to facilitate the patient receiving his chemotherapy. 2. COPD: No evidence of exacerbation currently. No indication for steroids or antibiotics. Continue inhalers. 3. Shortness of breath: Improved. The patient is not hypoxemic. Suspect the shortness of breath is multifactorial with an elevated BNP, and COPD. Prior echocardiogram demonstrated mild reduction in ejection fraction at 50%. Grade 1 diastolic dysfunction was noted with an increased right atrial pressure. Trial of diuretics may be warranted and is deferred to the patient's primary service. He is chronically anticoagulated so I do not think additional evaluation or work-up is required at this point time. 4. I did do not believe the patient has pneumonia and I do not see an indication for antibiotics currently. Again recommended interfacing with medical oncology. If they would feel better continuing his chemotherapy if he completed a course of antibiotics, could transition to oral Augmentin for 7 days. We will check a procalcitonin and if negative, I think antibiotics can be safely withheld At this point time I think it is in the patient's best interest to try and get him out of the hospital and back to receiving outpatient chemotherapy so he can continue to receive definitive therapy for his lung cancer as quickly as possible. The above recommendations and plan were discussed with the patient at bedside. He expressed understanding and is in agreement with the plan as outlined History of Present Illness Attending Physician: Evan Barnes MD History of Present Illness Asked by hospitalist to evaluate this patient with known lung carcinoma currently undergoing chemotherapy and obstructive lung disease. History is obtained from discussion with the patient as well as review of electronic medical record. Patient is a 71-year-old male with a history of stage IIIa (T4 N0 M0) adeno carcinoma the lung diagnosed in December. He is undergoing neoadjuvant chemotherapy with plans for potential surgical resection depending on how he tolerates therapy. He is completed his first cycle of chemotherapy. He is currently receiving nivolumab and circle based chemotherapy. He is scheduled to receive his next cycle on . The patient's course has been complicated by hypoxemic respiratory failure which required admission to an outside intensive care unit. The patient followed up with his primary care provider on 03/04 complaining of some shortness of breath. There was concern that he been off anticoagulation. He was referred to the emergency room for CT angiogram which was accomplished. The patient was given a presumptive diagnosis of cavitary pneumonia and admitted to the hospitalist service. He did on antibiotics in the form of vancomycin and Unasyn. He was restarted on apixaban for anticoagulation. The patient denies any productive cough. He is not had fevers chills or night sweats. No unintentional weight loss. He denies chest pain. The patient states that he feels like he is breathing much better. He is not on oxygen. He has been ambulating. His oral intake is improved. Allergies Allergy/AdvReac Type Severity Reaction Status Date / Time doxycycline AdvReac Unknown VOMITING Verified 03/04/22 12:08 Home Medications Medication Instructions Recorded Confirmed Type allopurinol 300 mg tablet 300 mg PO DAILY 11/20/21 03/05/22 History omeprazole 20 mg capsule,delayed 20 mg PO DAILY 11/20/21 03/05/22 History release losartan 50 mg tablet 50 mg PO DAILY #90 tabs 12/07/21 03/05/22 Rx fluticasone fur. 100 mcg-umeclid 1 inh inhalation DAILY #60 ea 12/19/21 03/05/22 Rx 62.5 mcg-vilant 25 mcg inhalat.powder (Trelegy Ellipta) guaifenesin 400 mg tablet 400 mg PO TID PRN cough #60 tabs 12/31/21 03/05/22 Rx folic acid 1 mg tablet 1 mg PO DAILY #30 tabs 01/28/22 03/05/22 Rx metoprolol tartrate 50 mg tablet 50 mg PO BID #60 tabs 01/28/22 03/05/22 Rx thiamine HCl (vitamin B1) 100 mg 100 mg PO DAILY #30 tabs 01/28/22 03/05/22 Rx tablet albuterol sulfate 90 mcg/actuation 2 puff inhalation Q6H PRN 03/04/22 03/05/22 Rx aerosol inhaler shortness of breath or wheezing #18 grams apixaban 5 mg tablet 5 mg PO BID #60 tabs 03/04/22 03/05/22 Rx multivitamin 1 tab PO DAILY #90 tabs 03/04/22 03/05/22 Rx olanzapine 2.5 mg tablet 2.5 mg PO DIRECTED 03/05/22 03/05/22 History ondansetron HCl 8 mg tablet 8 mg PO Q8 PRN Nausea 03/05/22 03/05/22 History Patient History Medical History Adenocarcinoma of left lung, stage 3 Atrial flutter Blood clot in vein Cavitating mass of lower lobe of left lung COPD (chronic obstructive pulmonary disease) Hypertension PVD (peripheral vascular disease) Tobacco abuse Surgical History History of neck surgery S/P bronchoscopy with bronchoalveolar lavage Family History Father Stroke Heart disease Myocardial infarction Mother Myocardial infarction Diabetes Sister No problems noted. Brother Cancer Lung cancer Brother Kidney disease Cancer Social History Smoking Status: Former smoker Tobacco Type: Cigarettes Age Started Using Tobacco: 16; packs per day: 1; Cigarettes Per Day: 20; Second Hand Exposure: No; Do You Dip or Chew Tobacco: No; Tobacco Cessation Education Requested by Patient: No Hx Alcohol Use: Yes Alcohol type: beer Alcohol Intake Frequency: 4 or More x per/Week Hx Substance Use: No Preferred Language: Tuvaluan Communication Ability: Effective Visual Impairment: No Limitations Hearing Ability: Normal Hr Business Partner Consultant Required: No Beliefs That Will Affect Care: None marital status: Current Living Situation: Spouse current occupational status: retired 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 How many Children do You have: 2 Other Information That Helps Us Care for You: No Feels Safe at Home: No Is there a partner from a previous relationship who is making you feel unsafe now?: No Any Concerns about Your Family Situation: No Would You Like to Speak to Someone About Your Situation: No Safety Concerns: Feels Safe At This Time Diet Comment: regular caffeine: Yes during the past year weight has: remained stable Dental Care, Regularly: Yes Physical Activity Frequency: Daily Seatbelt Use: always Sunscreen Use: No Assistive Devices: Walker Review of Systems Review of Systems: Admission H&P. No additions or deletions Physical Exam Constitutional: WD/WN, vitals as above ENMT: Mallampati Class: II Poor dentition Neck: trachea midline, no thyromegaly Respiratory: normal respiratory effort, lungs clear to auscultation Cardiovascular: RRR, no murmur, no edema Gastrointestinal (Abdomen): normal bowel sounds, soft, nontender, no hepatosplenomegaly Musculoskeletal: Extremities: extremities normal to inspection Skin: no rashes, warm and dry Neurologic: Nonfocal exam Lymphatic: no cervical lymphadenopathy Results & Data Results & Data ([facility]) Vital Signs (Past 12 Hours) Vital Signs Temp Pulse Resp BP Pulse Ox O2 Del Method 03/05/22 15:30 36.3 C L 78 20 124/64 94 Room Air 03/05/22 15:11 75 16 97 Room Air 03/05/22 11:12 68 16 96 Room Air 03/05/22 10:45 36.5 C 70 18 132/72 97 Room Air 03/05/22 08:00 Room Air 03/05/22 07:44 36.4 C L 86 18 145/81 H 93 Room Air 03/05/22 07:19 80 18 94 Room Air Critical Care Results & Data Vital Signs (Past 12 Hours) Vital Signs Temp Pulse Resp BP Pulse Ox O2 Del Method 03/05/22 15:30 36.3 C L 78 20 124/64 94 Room Air 03/05/22 15:11 75 16 97 Room Air 03/05/22 11:12 68 16 96 Room Air 03/05/22 10:45 36.5 C 70 18 132/72 97 Room Air 03/05/22 08:00 Room Air 03/05/22 07:44 36.4 C L 86 18 145/81 H 93 Room Air 03/05/22 07:19 80 18 94 Room Air Lab & Micro Results (Past 24 Hours) RBC 2.40 M/uL (4.63-6.08) L 03/05/22 WBC 8.04 K/ul (4.8-10.8) 03/05/22 Hgb 8.2 g/dl (14.0-18.0) L 03/05/22 Hct 22.5 % (40.1-51.0) L 03/05/22 MCV 93.8 fL (80.0-100.0) 03/05/22 MCH 34.2 pg (25.0-34.0) H 03/05/22 MCHC 36.4 g/dL (32.0-36.0) H 03/05/22 RDW Standard Deviation 42.9 fL (36.4-46.3) 03/05/22 RDW Coefficient of Variation 12.6 % (11.5-14.5) 03/05/22 Plt Count 192 K/uL (130-400) 03/05/22 MPV 9.0 fL (9.4-12.4) L 03/05/22 Neutrophils (%) (Auto) 88.7 % 03/05/22 Lymphocytes (%) (Auto) 5.3 % 03/05/22 Monocytes # (Auto) 0.40 K/uL (0.24-0.82) 03/05/22 Eosinophils # (Auto) 0.02 K/uL (0-0.50) 03/05/22 Immature Granulocyte % (Auto) 0.4 % 03/05/22 Neutrophils # (Auto) 7.13 K/uL (1.4-6.5) H 03/05/22 Lymphocytes # (Auto) 0.43 K/uL (1.2-3.4) L 03/05/22 Monocytes # (Auto) 0.40 K/uL (0.24-0.82) 03/05/22 Eosinophils # (Auto) 0.02 K/uL (0-0.50) 03/05/22 Basophils # (Auto) 0.03 K/uL (0-0.2) 03/05/22 Immature Granulocyte # (Auto) 0.03 K/uL (0.00-0.02) H 03/05 Na 134 mmol/L (136-145) L 03/05/22 K 3.7 mmol/L (3.5-5.1) 03/05/22 Cl 94 mmol/L (98-107) L 03/05/22 CO2 27 mmol/L (21-32) 03/05/22 Anion Gap 13 (3-11) H 03/05/22 BUN 12 mg/dl (6-23) 03/05/22 Creatinine 0.90 mg/dl (0.6-1.4) 03/05/22 Estimated GFR ( Amer) 100.6 ml/min 03/05/22 Estimated GFR (Non-Af Amer) 86.8 ml/min 03/05/22 BUN/Creatinine Ratio 13.3 (10-20) 03/05/22 Glu 110 mg/dl (70-99(Fasting)) H 03/05/22 Ca 7.4 mg/dl (8.5-10.1) L 03/05/22 Total Bilirubin 0.4 mg/dl (0.2-1.0) 03/05/22 AST 14 U/L (13-39) 03/05/22 ALT 16 U/L (7-52) 03/05/22 Alkaline Phosphatase 66 U/L (34-104) 03/05/22 TP 6.2 gm/dl (6.0-8.3) 03/05/22 Albumin 2.9 gm/dl (3.4-5.0) L 03/05/22 Globulin 3.3 gm/dl (2.5-4.0) 03/05/22 Albumin/Globulin Ratio 0.9 (0.9-2) 03/05/22 Mg 1.4 mg/dl (1.7-2.4) L 03/05/22 14:20 Calcium Level 7.4 mg/dl (8.5-10.1) L 03/05/22 06:16 Prothromb Time International Ratio 1.1 (0.9-1.1) 03/05/22 06:1 6 Diagnostic Findings (Past 24 Hours) Chest X-Ray 03/04/22 19:16 XR chest 1V portable CLINICAL HISTORY: SOB TECHNIQUE: Single frontal radiograph of the chest was obtained. Comparison: Comparison is made to chest radiograph 12/19/2021 and PET/CT 12/12/2021 FINDINGS: No lines and tubes are seen. The cardiomediastinal silhouette is stable. Left hilar mass is again seen. There is an airspace opacity in the left lower lung. There is a small left pleural effusion, new from prior exam. IMPRESSION: 1. Airspace opacity in the left lower lung may represent atelectasis, pneumonia, and/or aspiration. There is a small left pleural effusion. 2. Redemonstration of left hilar mass. ACT 112: Negative or not required by law. Electronically signed by: Sachin Hopkins M.D. 03/04/2022 8:37 PM Chest CTA 03/04/22 20:51 CT ANGIOGRAM OF THE CHEST CLINICAL HISTORY: Dyspnea. Lung cancer. COMPARISON STUDY: Chest x-ray dated 03/04/2022. Chest CT dated 11/15/2021. PET/CT dated 12/12/2021. TECHNIQUE: Following the IV administration of 109 cc of Optiray 300, CT a ngiogram of the chest was performed from the upper abdomen to the thoracic inlet utilizing the pulmonary embolus protocol. Images are reviewed in the axial, sagittal, and coronal planes. 3-D MIPS images are created and assessed. IV contrast was administered without complication. A dose lowering technique was utilized adhering to the principles of ALARA. CT DOSE: 396.42 mGy.cm FINDINGS: Thyroid: Normal in size and heterogeneous in attenuation. Thoracic aorta: There is atherosclerotic calcification of the thoracic aorta, which is normal in caliber and demonstrates standard 3-vessel arch anatomy. No dissection is seen. Pulmonary vasculature: The main pulmonary arteries are dilated suggesting pulmonary artery hypertension. There are no filling defects identified in main, lobar, or segmental pulmonary branches typical for acute pulmonary embolus. There are numerous small chronic appearing pulmonary emboli identified. These are seen within the right lower lobe pulmonary artery (images #156 and #157), in the left upper lobe pulmonary artery (image #201), and in the left lower lobe pulmonary artery (image #173 and #191). There is suboptimal contrast opacification of the left lower lobe pulmonary arteries. Heart: The heart is enlarged and without pericardial effusion. Lungs and pleural spaces: There is moderate emphysema. A cavitary mass lesion is again seen at the left lung base. Cavitation is increased from 11/15/2021. The lesion measures approximately 6 x 4 cm on today's examination. There is a small left pleural effusion with left basilar consolidation. The trachea is clear. Debris is seen within the left mainstem bronchus and filling the left lower lobe airways. There is a parenchymal scarring are seen throughout both lungs. There is diffuse intralobular septal thickening. Mediastinum: There are several mildly enlarged mediastinal lymph nodes. AP window nodes measure up to 12 mm in short axis. Candice: Enlarged left hilar nodes measure up to 13 mm in short axis. No right hilar adenopathy is seen. Axillae: There is no axillary lymphadenopathy. Upper abdomen: There is atherosclerotic calcification of the abdominal aorta. Partially visualized upper abdominal viscera is otherwise grossly unremarkable. Skeletal structures: The skeletal structures are osteopenic. Fusion hardware is noted in the lower cervical spine. No lytic or blastic bony lesions are seen. There is chronic posttraumatic deformity of the manubrium. IMPRESSION: 1. There are no filling defects typical for acute pulmonary embolus identified in the main, lobar, or segmental pulmonary arteries. 2. Numerous small chronic appearing pulmonary emboli are seen bilaterally. 3. Cardiomegaly and emphysema. Intralobular septal thickening suggests fluid overload/congestive failure and clinical correlation will be required. 4. A centrally necrotic mass lesion is again seen at the left lung base and is consistent with the patient's known history of lung cancer. The degree of cavitation appears increased from previous. 5. Small left pleural effusion with bibasilar consolidation. Additionally, there is debris filling the left lower lobe airways. Correlate clinically for evidence of pneumonia/aspiration pneumonitis. 6. There are mildly enlarged left hilar and mediastinal lymph nodes. These have increased in size from previous and may be reactive. 7. Additional findings as above. ACT 112: Negative or not required by law. Electronically signed by: Cayetano Robledo M.D. 03/05/2022 9:36 AM I & O Totals 24 Hours 03/04/22 03/05/22 03/06/22 06:59 06:59 06:59 Intake Total 1486.333 / 1948.076 1108.000 / 1171.000 Balance 1486.333 / 0007.883 1005.000 / 1171.000 Cumulative 03/04/22 18:33 thru 03/05/22 15:12 Intake Total 2657.333 Balance 2657.333 RT Ventilator Mngmt (Last Documented) Ventilator Ordered Settings Respiratory Rate 20 03/05/22 15:30 Ventilator - PT Measurements Respiratory Rate 20 PG Care Time/CCT Total # of Minutes Spent Total Time Spent with Patient: Total time spent is greater than 50% in coordination of care (as documented) at patient's floor/unit and/or counseling patient: Coding Level of Care Code 27339 Inpt Consult Level 4 Diagnoses Cavitating mass of lower lobe of left lung J98.4 COPD (chronic obstructive pulmonary disease) J44.9
[2022-03-05] MEDS: AMOXICILLIN/CLAVULANATE 875 MG TAB PO SCH (18:27)
--- NOTE | 2022-03-05 22:52 | Electrocardiogram Report ---
Test Reason : Blood Pressure : / mmHG Vent. Rate : 082 BPM Atrial Rate : 082 BPM P-R Int : 126 ms QRS Dur : 094 ms QT Int : 412 ms P-R-T Axes : 036 006 063 degrees QTc Int : 481 ms Poor data quality, interpretation may be adversely affected Sinus rhythm with Premature atrial complexes Prolonged QT Abnormal ECG When compared with ECG of 25-FEB-2022 17:53, Premature atrial complexes are now Present Nonspecific T wave abnormality no longer evident in Inferior leads Confirmed by Rosalio oPrter ([id number]) on 03/05/2022 10:52:05 PM Referred By: Nikko Tejeda Confirmed By:Rosalio Porter
[2022-03-06] MEDS: ALBUT/IPRATROP 3MG/0.5MG NEB 3 ML VIAL NEB SCH (06:59)
[2022-03-06 07:11] LABS: Hematocrit (blood only) 20.3 % (40.1-51.0); Hemoglobin 7.4 g/dl (14.0-18.0); Mean Corpuscular Hemoglobin 34.7 pg (25.0-34.0); Mean Corpuscular Hgb Conc 36.5 g/dL (32.0-36.0); Mean Corpuscular Volume 95.3 fL (80.0-100.0); Mean Platelet Volume 9.5 fL (9.4-12.4); Platelet Count 191 K/uL (130-400); RDW Coefficient of Variation 12.6 % (11.5-14.5); RDW Standard Deviation 43.2 fL (36.4-46.3); Red Blood Count 2.13 M/uL (4.63-6.08); White Blood Count 7.53 K/ul (4.8-10.8)
[2022-03-06 08:05] LABS: Albumin Level 2.9 gm/dl (3.4-5.0); Bilirubin,Total 0.2 mg/dl (0.2-1.0); Creatinine Clr Calc Pharmacy 76.9 ml/min; Est GFR (African American) 88.6 ml/min; Est GFR (Non-African American) 76.5 ml/min; Magnesium 1.5 mg/dl (1.7-2.4); Potassium 3.4 mmol/L (3.5-5.1); Total Protein 5.9 gm/dl (6.0-8.3)
[2022-03-06 08:08] LABS: Basophils # (auto) 0.01 K/uL (0-0.2); Basophils % (auto) 0.1 %; Immature Granulocytes # (auto) 0.04 K/uL (0.00-0.02); Immature Granulocytes % (auto) 0.5 %; Lymphocytes # (auto) 1.25 K/uL (1.2-3.4); Lymphocytes % (auto) 16.6 %; Monocytes # (auto) 0.75 K/uL (0.24-0.82); Neutrophils # (auto) 5.48 K/uL (1.4-6.5); Neutrophils % (auto) 72.8 %; Polychromasia 1+
[2022-03-06] MEDS: THIAMINE HCL 100 MG TAB PO SCH (08:42)
[2022-03-06] MEDS: APIXABAN 5 MG TABLET PO SCH (08:42)
[2022-03-06] MEDS: allopurinoL 300 MG TAB PO SCH (08:43)
[2022-03-06] MEDS: guaiFENesin 600 MG TABCR PO SCH (08:43)
[2022-03-06] MEDS: PANTOprazole 40 MG TAB PO SCH (08:43)
[2022-03-06] MEDS: METOPROLOL TARTRATE 50 MG TAB PO SCH (08:43)
[2022-03-06] MEDS: MULTIVITAMIN TAB PO SCH (08:44)
[2022-03-06] MEDS: FOLIC ACID 1 MG TAB PO SCH (08:44)
[2022-03-06] MEDS: LOSARTAN POTASSIUM 50 MG TAB PO SCH (08:44)
[2022-03-06] MEDS: FLUTICASONE FUROATE 100MCG 14 PUFFS/INHALER INH SCH (08:45)
--- NOTE | 2022-03-06 08:45 | Pulmonology Progress Note ---
Date of Service March 06, 2022 Assessment & Plan (1) Cavitating mass of lower lobe of left lung: (2) COPD (chronic obstructive pulmonary disease): Plan Impression: 71-year-old male with stage IIIa adenocarcinoma the lung currently undergoing neoadjuvant chemotherapy. He was admitted with shortness of breath which is now resolved.. His CT scan shows cavitary mass in the left lower lobe consistent with the patient's diagnosis of lung cancer. No evidence of secondary infection and normal procalcitonin. Recommendations: 1. Stage IIIa adenocarcinoma of the lung: I think it is in the patient's best interest to continue to receive chemotherapy. His next cycle is scheduled to start on tomorrow. Recommend discharging the patient so that he can continue to receive chemotherapy on schedule. 2. COPD: No evidence of exacerbation currently. No indication for steroids or antibiotics. Continue inhalers. 3. Shortness of breath: Resolved. The patient is not hypoxemic. Suspect the shortness of breath is multifactorial with an elevated BNP, and COPD. Prior echocardiogram demonstrated mild reduction in ejection fraction at 50%. Grade 1 diastolic dysfunction was noted with an increased right atrial pressure. Trial of diuretics may be warranted and is deferred to the patient's primary service. He is chronically anticoagulated so I do not think additional evaluation or work-up is required at this point time. 4. With a normal procalcitonin, I think antibiotics can be discontinued. At this point time I think it is in the patient's best interest to try and get him out of the hospital and back to receiving outpatient chemotherapy. Recommend the patient be dismissed from the hospital and continue to receive chemotherapy in the outpatient setting. He expressed understanding and is in agreement with the plan as outlined. Feel free to contact us with questions or concerns. Pulmonary will sign off. Admission and Anticipated Discharge Date Admission Date: March 05, 2022 Subjective Patient seen and examined. EMR reviewed. He is awake alert and conversant. He is on room air. He states his shortness of breath is completely resolved. He is tolerating a diet. He is ambulatory. He is not coughing. No fevers chills or night sweats overnight Review of Systems Review of Systems: All systems reviewed & are unremarkable except as noted in Subjective Physical Exam Constitutional: WD/WN, vitals as above ENMT: Mallampati Class: II Neck: trachea midline, no thyromegaly Respiratory: normal respiratory effort, lungs clear to auscultation Cardiovascular: RRR, no murmur, no edema Gastrointestinal (Abdomen): normal bowel sounds, soft, nontender, no hepatosplenomegaly Musculoskeletal: Extremities: extremities normal to inspection Skin: no rashes, warm and dry Lymphatic: no cervical lymphadenopathy Results & Data Results & Data ([facility]) Vital Signs (Past 12 Hours) Vital Signs Temp Pulse Pulse Resp BP BP Pulse Ox 03/06/22 07:03 36.6 C 65 19 134/79 97 03/06/22 07:00 66 16 97 03/06/22 04:09 36.8 C 73 16 150/66 H 93 03/05/22 23:49 36.5 C 72 16 131/65 92 03/05/22 23:19 83 03/05/22 22:46 O2 Del Method 03/06/22 07:03 Room Air 03/06/22 07:00 Room Air 03/06/22 04:09 Room Air 03/05/22 23:49 Room Air 03/05/22 23:19 03/05/22 22:46 Room Air Laboratory Results 03/06/22 06:27 03/06/22 06:27 Procalcitonin undetectable Diagnostic Findings No new imaging PG Care Time/CCT Total # of Minutes Spent Total Time Spent with Patient: Total time spent is greater than 50% in coordination of care (as documented) at patient's floor/unit and/or counseling patient: Coding Level of Care Code 31185 Subseq Hosp Care Lvl 2 Diagnoses Cavitating mass of lower lobe of left lung J98.4 COPD (chronic obstructive pulmonary disease) J44.9
[2022-03-06] MEDS: UMECLIDINIUM/VILANTEROL 62.5/25MCG 7 PUFFS/INHALER INH SCH (08:47)
[2022-03-06] MEDS: AMOXICILLIN/CLAVULANATE 875 MG TAB PO SCH (08:54)
[2022-03-06] MEDS ORDERED: POTASSIUM CHLORIDE CRTAB 20 MEQ TABCR PO SCH (09:15)
[2022-03-06] MEDS: MAGNESIUM SULFATE / D5W 1 GM/100 ML BAG IV SCH ×2 (09:43→11:36)
[2022-03-06] MEDS ORDERED: ALBUT/IPRATROP 3MG/0.5MG NEB 3 ML VIAL NEB PRN (10:09)
--- NOTE | 2022-03-06 11:20 | Discharge Summary ---
Date of Service March 06, 2022 Admission HPI Per Admitting Provider The patient is a 71-year-old male with past medical history including adenocarcinoma of left lung stage III, cavitating mass of left lower lobe of lung, peripheral vascular disease, hypertension, tobacco abuse, COPD, acid reflux, gout, and atrial flutter. The patient presents with symptoms as noted above. Principal Diagnosis Acute exacerbation COPD, hypomagnesemia Discharge Exam In's general-alert and oriented x3, no fevers, no chills HEENT-head atraumatic and normocephalic, pupils equal and reactive to light, extraocular muscles intact Neck-no lymphadenopathy or thyromegaly, trachea midline Chest-diminished breath sound bilaterally. Scattered rhonchi. Faint bilateral end expiratory wheezes. Cardiac-regular rate and rhythm, normal S1 and S2, no murmurs Abdomen-normal bowel sounds, nontender, no hepatosplenomegaly Extremities-no cyanosis, clubbing, or edema Neuro-cranial nerves II through XII intact, motor and sensory function within normal limits, strength symmetrical , no focal deficits Psych-normal affect, normal mood Discharge Data Allergies Allergy/AdvReac Type Severity Reaction Status Date / Time doxycycline AdvReac Unknown VOMITING Verified 03/04/22 12:08 Consultations 03/05/22 00:19 ED Decision to Admit Stat 03/05/22 13:56 Consult Pulmonology Routine Ordered Studies 03/04/22 20:51 CT angio chest PE protocol Urgent Hospital Course (1) Cavitary pneumonia: Pneumonia appears to have been ruled out. Appreciate pulmonary medicine consultation. Cavitation appears to be within the left lower lobe malignancy. Chest CTA is abnormal as expected. He appears to have chronic bilateral pulmonary emboli but nothing acute. Pulmonary medicine consultation appreciated. Antibiotics have been discontinued (2) Hypomagnesemia: Hypomagnesemia/hypokalemia. Replacement therapy. Serial labs (3) Adenocarcinoma of left lung, stage 3: Known diagnosis. See chest CTA report. (4) Cavitating mass of lower lobe of left lung: Appears to be cavitation of known lung cancer. Pulmonary medicine consultation appreciated (5) Atrial flutter: Atrial flutter/hypertension. Treated with apixaban, losartan, metoprolol tartra te (6) Hypertension: Controlled with losartan and metoprolol (7) Tobacco abuse: Tobacco cessation recommended (8) Acid reflux: Continue omeprazole/pantoprazole (9) Gout: Continue allopurinol (10) Acute exacerbation of chronic obstructive pulmonary disease (COPD): Treat underlying pneumonia. Intravenous antibiotics. Intravenous steroids and nebulizer treatments. Await pulmonary medicine consultation and recommendations Plan Discharge to home today, March 06. Antibiotics discontinued. He will continue outpatient chemotherapy tomorrow. Total Time Total Time Spent Total Time Spent (In Minutes): 35 minutes Discharge Plan Discharge Items Patient Disposition: Home - Self-Care Reason For Visit: PNEUMONIA, CAVITARY LUNG LESION, LOW MAG & POTASSI Discharge Diagnosis: Cavitation of left lower lobe malignancy, acute exacerbation COPD, hypomagnesemia Activity: Resume your previous activity Non-emergency contact: Primary Care Provider and Oncologist Call non-emergency contact if: you have any medication questions Follow-up/Referrals: Nikko Tejeda CRNP [Primary Care Provider] - Diet: Heart Healthy Addtl Attending Provider Instructions: Potassium pill has been added once daily. All other medications remain the same. Resume outpatient chemotherapy tomorrow Pending Studies at Discharge: No Stand-Alone Forms: My ManagerComplete, Smoking Cessation Medications and DC Order Prescriptions: New amoxicillin-pot clavulanate 875-125 mg Tablet 1 tab PO BIDM Qty: 1 0RF potassium chloride 20 mEq Tablet,Er Particles/Crystals 20 meq PO DAILY Qty: 30 0RF Continued losartan 50 mg tablet 50 mg PO DAILY Qty: 90 1RF Trelegy Ellipta 100-62.5-25 mcg blister with device 1 inh inhalation DAILY Qty: 60 5RF metoprolol tartrate 50 mg tablet 50 mg PO BID Qty: 60 2RF folic acid 1 mg tablet 1 mg PO DAILY Qty: 30 2RF thiamine HCl (vitamin B1) 100 mg tablet 100 mg PO DAILY Qty: 30 0RF allopurinol 300 mg tablet 300 mg PO DAILY omeprazole 20 mg capsule,delayed release(DR/EC) 20 mg PO DAILY guaifenesin 400 mg tablet 400 mg PO TID PRN (Reason: cough) Qty: 60 1RF apixaban 5 mg tablet 5 mg PO BID Qty: 60 2RF multivitamin Tablet 1 tab PO DAILY Qty: 90 1RF albuterol sulfate 90 mcg/actuation HFA aerosol inhaler 2 puff inhalation Q6H PRN (Reason: shortness of breath or wheezing) Qty: 18 3RF ondansetron HCl 8 mg tablet 8 mg PO Q8 PRN (Reason: Nausea) olanzapine 2.5 mg tablet 2.5 mg PO DIRECTED Rx Instructions: Take 1 tab for 4 days, starting day 1 of chemo for nausea Discharge Orders: Discharge Order (Routine); Ordered 03/06/22 Ordered By: Evan Barnes Admission Data Admit Date/Time: 03/05/22 01:22 Attending Provider: Evan Barnes Admit Provider: David Solano Primary Care Provider: Nikko Tejeda Other Providers: David Solano ; Cayetano Sherwood ; Brayan Fairbanks ; Josiah Trevizo ; Cristobal Amin ; Natacha Navarro Coding Level of Care Code D/C DAY MANAGEMENT >30 MINS Diagnoses Cavitary pneumonia J18.9; J98.4 Hypomagnesemia E83.42 Adenocarcinoma of left lung, stage 3 C34.92 Cavitating mass of lower lobe of left lung J98.4 Atrial flutter I48.92 Hypertension I10 Tobacco abuse Z72.0 Acid reflux K21.9 Gout M10.9 Acute exacerbation of chronic obstructive pulmonary disease (COPD) J44.1
[2022-03-06] MEDS ORDERED: VANCOMYCIN LEVEL ONE (13:30)
== END 2022-03-06 14:29 | disposition home or self-care (01) ==
LOC: ED 18:33 → SUATTDRO 03-05 01:22 → 2S 03-05 01:22 → INTOOBSV 03-05 01:22 → 2S 03-05 02:41

== ENCOUNTER 2024-02-18 13:45 | Observation (INO) ==
[2024-02-18 15:32] LABS: Hematocrit (blood only) 35.8 % (42.0-52.0); Hemoglobin 12.6 g/dl (14.0-18.0); Mean Corpuscular Hemoglobin 33.9 pg (25.0-34.0); Mean Corpuscular Hgb Conc 35.2 g/dL (32.0-36.0); Mean Corpuscular Volume 96.2 fL (80.0-100.0); Mean Platelet Volume 9.3 fL (9.4-12.4); Platelet Count 316 K/uL (130-400); RDW Coefficient of Variation 12.8 % (11.5-14.5); RDW Standard Deviation 45.4 fL (36.4-46.3); Red Blood Count 3.72 M/uL (4.70-6.10)
--- NOTE | 2024-02-18 15:40 | Emergency Department Note ---
Impression & Plan Rectal bleeding, Anemia ED Provider Note NAME: RANDY SAGASTUME AGE: 73 SEX: M : 1950 ARRIVES VIA: Walk-In INFORMANT: Patient, ED PROVIDER(S): Brian Bonilla MD CHIEF COMPLAINT: Rectal bleeding MEDICAL DECISION MAKING: Patient presents due to concern rectal bleeding. The patient is on Eliquis last taken this this morning. IV was established and blood work is obtained. Patient was ordered Protonix as a precaution although does sound a lower GI in nature. Patient has had prior polyps before as well. Patient with a normal white count hemoglobin of 12.6. Platelet count is unremarkable. Kidney function unremarkable. I did speak with the hospitalist service who recommended a repeat H&H. The patient's repeat H&H is down trended approximately 0.8. Given this concern he will stay for observation and follow. Patient was admitted by Dr. Sky. Discussion w/ other healthcare providers: None Prior /Outside records reviewed: I reviewed part of a primary care visit from 01/14/2024 from Constanza parsons. Patient with a history of hypertension left lung cancer DVT and PE cavitary mass of lower lung COPD gout hypomagnesemia PVD tobacco abuse quit November 2021. Differential diagnosis: Diverticulitis, AVM, coagulopathy, colitis, inflammatory bowel disease, malignancy, esophagitis, peptic ulcer disease, variceal bleed, gastritis, fissure, hemorrhoids, as well as other pathologies.] Diagnostics, as interpreted by me: ECG: Normal sinus rhythm, rate of 66, normal intervals, normal axis no ST elevations. Cardiac monitoring: An order was placed for continuous cardiac monitoring. The monitor shows a rate of 67 with sinus rhythm. Patient was placed on pulse oximetry Medical decision rules: None Imaging studies: I informally interpreted the patient's chest x-ray does not show significant change no obvious pneumothorax with formal report to follow. HPI: Patient presents due to concern for rectal bleeding. The patient states that this began around 1:30 AM this morning. The patient reports that has had several bouts of feeling as though he has to go to the bathroom and subsequently has bloody stools. Patient denies any chest pains or new shortness of breath. The patient does have a known history of COPD as well as history of lung cancer currently under surveillance but reportedly cancer free and does follow-up with Dr. Uribe at the cancer center. Patient does take Eliquis for known history of blood clots and last took this this morning. The patient reports that he did have a colonoscopy completed for the end of 2022 and stated he had a polyp removed the first time then had a larger one that required removal at [facility]. Patient denies any abdominal pain. No nausea vomiting. PAST MEDICAL HISTORY: See Below PAST SURGICAL HISTORY: See Below SOCIAL HISTORY: See Below HOME MEDICATIONS: See Below ALLERGIES: See Below VITALS: See Below PHYSICAL EXAMINATION: GENERAL: NAD, non-toxic. EYE EXAM: Normal conjunctiva. PERRL, no anisocoria and EOM's grossly intact w/o pain. OROPHARYNX: Moist mucus membranes, grossly normal dentition. NECK: Trachea midline, no stridor. LUNGS: Coarse sounds bilateral chest. Normal chest wall mechanics. HEART: NSR, no MRG. ABDOMEN: Abdomen soft, non-tender, no masses, no rebound or guarding. BACK: No CVA TTP. SKIN: No rashes and no bruising. UPPER EXTREMITIES: Upper extremities are grossly normal. LOWER EXTREMITIES: Grossly normal, no edema. NEURO EXAM: A&O x3, cranial nerves II-XII grossly intact, normal speech, moves all 4 extremities. Past Med/Surg History Problem List (Updated 02/20/24 @ 08:19 by Brian Bonilla MD) Anemia (Acute) Rectal bleeding (Acute) Hematochezia Contact dermatitis resolved Eosinophilic spongiosis Hypomagnesemia S/P lobectomy of lung (07/03/22) status post robotic left VATS, thoracotomy, lower left lobectomy and node dissection Completed by [facility] Gout Hypertension COPD (chronic obstructive pulmonary disease) daily and prn inh>uses rescue inhaler every morning, sometimes twice daily Atrial flutter f/u maico leary, [facility] Acid reflux Adenocarcinoma of left lung, stage 3 dx 12/2021, sx tx at [facility], all other tx at [facility] cancer enter Cavitating mass of lower lobe of left lung 11/07/2021-left lower lobe mass with mild central cavitation measures up to 8.6 cm>sx to remove PVD (peripheral vascular disease) Medical History Pulmonary embolism years ago, travelled from one of his legs Tobacco abuse Cessation 11/2021.>smoked for 50 years Blood clot in vein years ago, in both legs>travelled to lungs; no current issues Surgical History Hx of colonoscopy Hx of bilateral cataract extraction S/P bronchoscopy with bronchoalveolar lavage 01/24/22 Dr. Yeny Peguero at [facility], + Gram neg bacilli History of neck surgery 2 plates w/screws in neck; ROM is "good" Family History Father Stroke Heart disease Myocardial infarction Mother Myocardial infarction Diabetes Sister No problems noted. Brother Cancer Lung cancer Brother Kidney disease Cancer Social History Smoking Status: Former smoker Tobacco Type: Cigarettes Age Started Using Tobacco: 16; packs per day: 1; Cigarettes Per Day: 20; Second Hand Exposure: No; Do You Dip or Chew Tobacco: No; Tobacco Cessation Education Requested by Patient: No Hx Alcohol Use: No Hx Substance Use: No Preferred Language: Maltese Communication Ability: Effective Visual Impairment: No Limitations Hearing Ability: Normal Manipulator Operator Required: No Beliefs That Will Affect Care: None marital status: Current Living Situation: Spouse Current Living Situation Comment: lives with current occupational status: 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 How many Children do You have: 2 Feels Safe at Home: Yes Safety Concerns: Feels Safe At This Time Diet: regular Diet Comment: regular caffeine: Yes during the past year weight has: remained stable Dental Care, Regularly: Yes Physical Activity Frequency: Daily Seatbelt Use: always Sunscreen Use: No Assistive Devices: None Allergies Allergies Allergy/AdvReac Type Severity Reaction Status Date / Time doxycycline AdvReac Unknown VOMITING Verified 02/18/24 20:06 Home Meds Home Medications Medication Instructions Recorded Confirmed omeprazole 20 mg capsule,delayed 20 mg PO QAM 11/20/21 02/18/24 release multivitamin 1 tab PO DAILY 09/10/23 02/18/24 magnesium oxide 400 mg (241.3 mg 400 mg PO TID 02/18/24 02/18/24 magnesium) tablet Previous Rx's Medication Instructions Recorded apixaban 5 mg tablet 5 mg PO BID #60 tabs 07/11/23 albuterol sulfate 1.25 mg/3 mL 1.25 mg (3 mL) inhalation QID PRN 09/10/23 solution for nebulization shortness of breath or wheezing #75 mL compressor, for nebulizer #1 ea 09/10/23 losartan 100 mg tablet 100 mg PO QAM #90 tabs 09/10/23 metoprolol succinate 25 mg 12.5 mg (1/2 x 25 mg) PO QAM #90 09/10/23 tablet,extended release 24 hr tabs fluticasone fur. 100 mcg-umeclid 1 inh inhalation QAM #60 ea 09/17/23 62.5 mcg-vilant 25 mcg inhalat.powder (Trelegy Ellipta) gabapentin 300 mg capsule 300 mg PO TID PRN nerve pain #270 10/14/23 caps albuterol sulfate 90 mcg/actuation 2 puff inhalation Q6H PRN 11/04/23 aerosol inhaler shortness of breath or wheezing #18 grams allopurinol 300 mg tablet 300 mg PO QAM #90 tabs 12/15/23 Results & Data (ED) Vital Signs Vital Signs - 24 hr 02/18/24 13:58 02/18/24 15:42 02/18/24 17:00 Temperature 36.4 C L Temperature Source Temporal Artery Scan Pulse Rate 73 62 Pulse Rate [Apical] 65 Pulse Rhythm [Apical] Regular Pulse Strength [Apical] Normal Respiratory Rate 20 18 Respiratory Effort / Characteristics Non-Labored Spontaneous Respiratory Depth Normal Respiratory Pattern Regular Blood Pressure 159/91 H Blood Pressure [Left Arm] 131/57 L Blood Pressure Mean 113 Blood Pressure Mean [Left Arm] 81 Blood Pressure Position [Left Arm] Sitting Pulse Oximetry 94 97 Oxygen Delivery Method Room Air Room Air Sepsis Recent Fever Within 48 Hours No Sepsis New/Unexplained Change in Mental Status N/A Sepsis Action Taken by Nursing No Action Required Home Medications Current Medication List: was personally reviewed by me Laboratory Data Attestation: I reviewed the patient's lab results. 02/20/24 02:42 02/20/24 02:42 Lab Results 02/18/24 02/18/24 02/18/24 Range/Units 15:13 15:22 17:19 WBC 7.00 (4.8-10.8) K/ul RBC 3.72 L (4.70-6.10) M/uL Hgb 12.6 L 11.8 L (14.0-18.0) g/dl Hct 35.8 L 35.0 L (42.0-52.0) % MCV 96.2 (80.0-100.0) fL MCH 33.9 (25.0-34.0) pg MCHC 35.2 (32.0-36.0) g/dL RDW Std Deviation 45.4 (36.4-46.3) fL RDW Coeff of Glenda 12.8 (11.5-14.5) % Plt Count 316 (130-400) K/uL MPV 9.3 L (9.4-12.4) fL PT 10.3 (9.0-12.0) Seconds INR 0.9 (0.9-1.1) APTT 26 (21-31) Seconds PTT Ratio 1.0 Sodium 133 L (136-145) mmol/L Potassium 4.8 (3.5-5.1) mmol/L Chloride 98 (98-107) mmol/L Carbon Dioxide 29 (21-32) mmol/L Anion Gap 6 (3-11) BUN 19 (6-23) mg/dl Creatinine 1.27 (0.6-1.4) mg/dl Est Cr Clr Drug Dosing 62.0 ml/min Est GFR ( Amer) 65.4 ml/min Est GFR (Non-Af Amer) 56.5 ml/min BUN/Creatinine Ratio 15.0 (10-20) Glucose 95 (70-99(Fasting)) mg/dl Calcium 9.1 (8.6-10.3) mg/dl Total Bilirubin 0.3 (0.2-1.0) mg/dl AST 21 (13-39) U/L ALT 12 (7-52) U/L Alkaline Phosphatase 121 H (34-104) U/L Troponin I High Sens 9.3 (0-20) pg/ml Total Protein 7.6 (6.0-8.3) gm/dl Albumin 4.4 (3.4-5.0) gm/dl Globulin 3.2 (2.5-4.0) gm/dl Albumin/Globulin Ratio 1.4 (0.9-2) Blood Type A Negative Antibody Screen NEGATIVE Administered Medications Fluticasone Furoate (Fluticasone Furoate 100mcg 14 Puffs/Inhaler) 1 puffs INH DAILY MACKENZIE Stop: 03/20/24 08:59 Last Admin: 02/20/24 07:42 Dose: 1 puffs Documented By: Admin: 02/19/24 07:31 Dose: 1 puffs Documented By: [place] Pantoprazole Sodium 40 mg/ (Dextrose) 100 mls @ 20 mls/hr IV Q5H MACKENZIE Stop: 03/19/24 16:44 Last Admin: 02/20/24 07:01 Dose: 8 mg/hr, 20 mls/hr Documented By: Infusion: 02/20/24 07:01 Dose: Infused Documented By: Admin: 02/20/24 02:03 Dose: 8 mg/hr, 20 mls/hr Documented By: Infusion: 02/20/24 02:03 Dose: Infused Documented By: Admin: 02/19/24 21:14 Dose: 8 mg/hr, 20 mls/hr Documented By: Infusion: 02/19/24 21:14 Dose: Infused Documented By: Admin: 02/19/24 16:18 Dose: 8 mg/hr, 20 mls/hr Documented By: Infusion: 02/19/24 16:18 Dose: Infused Documented By: Admin: 02/19/24 11:26 Dose: 8 mg/hr, 20 mls/hr Documented By: Infusion: 02/19/24 11:26 Dose: Infused Documented By: Admin: 02/19/24 08:19 Dose: 8 mg/hr, 20 mls/hr Documented By: Infusion: 02/19/24 08:19 Dose: Infused Documented By: Admin: 02/19/24 03:32 Dose: 8 mg/hr, 20 mls/hr Documented By: Infusion: 02/19/24 03:28 Dose: Infused Documented By: Admin: 02/18/24 22:28 Dose: 8 mg/hr, 20 mls/hr Documented By: Infusion: 02/18/24 22:27 Dose: Infused Documented By: Admin: 02/18/24 17:16 Dose: 8 mg/hr, 20 mls/hr Documented By: CAM Lactated Ringer's (Lr) 1,000 mls @ 80 mls/hr IV .[id number] MACKENZIE Stop: 03/19/24 20:38 Last Admin: 02/20/24 07:43 Dose: 80 mls/hr Documented By: Infusion: 02/20/24 07:43 Dose: Infused Documented By: Admin: 02/19/24 20:49 Dose: 80 mls/hr Documented By: Infusion: 02/19/24 20:49 Dose: Infused Documented By: Admin: 02/19/24 08:19 Dose: 80 mls/hr Documented By: Infusion: 02/19/24 08:19 Dose: Infused Documented By: Admin: 02/18/24 21:43 Dose: 80 mls/hr Documented By: EWELINA Metoprolol Succinate (Metoprolol Succ 25mg Ext Rel Tab) 12.5 mg PO QAM [facility] Stop: 03/20/24 12:29 Last Admin: 02/20/24 07:42 Dose: 12.5 mg Documented By: Admin: 02/19/24 13:39 Dose: 12.5 mg Documented By: KENYATTA Umeclidinium/Vilanterol (Umeclidinium/Vilanterol 62.5/25mcg 7 Puffs/Inhaler) 1 puffs INH DAILY MACKENZIE Stop: 03/20/24 08:59 Last Admin: 02/20/24 07:42 Dose: 1 puffs Documented By: Admin: 02/19/24 07:31 Dose: 1 puffs Documented By: KENYATTA Discontinued Medications Pantoprazole Sodium 80 mg/ (Dextrose) 120 mls @ 480 mls/hr IV NOW ONE Stop: 02/18/24 16:34 Last Infusion: 02/18/24 17:18 Dose: Infused Documented By: Admin: 02/18/24 16:55 Dose: 480 mls/hr Documented By: CAM Ioversol (Optiray 320 125ml) 125 ml IV ONCE ONE Stop: 02/20/24 03:00 Last Admin: 02/20/24 03:00 Dose: 118 ml Documented By: GUZMAN Metoprolol Tartrate (Metoprolol Tartrate 1 Mg/Ml Vial) 2.5 mg IV Q6 [facility] Stop: 03/20/24 05:59 Last Admin: 02/19/24 11:51 Dose: 2.5 mg Documented By: Admin: 02/19/24 05:14 Dose: 2.5 mg Documented By: EWELINA Pantoprazole Sodium (Pantoprazole Bolus/Drip) 1 each IV NOW STA Stop: 02/18/24 16:21 Last Admin: 02/18/24 16:55 Dose: Not Given Documented By: SNS Imaging Data Radiologist's Impression: Chest X-Ray 02/18/24 17:05 XR chest 1V portable CLINICAL HISTORY: h/o COPD, coarse sounds b/l COMPARISON STUDY: Chest radiograph March 04, 2022. Chest CT October 15, 2023. FINDINGS: Postoperative findings within the spine are incidentally noted. There are postoperative findings within the left hemithorax. Lungs are clear. There is no pneumothorax or pleural effusion. Cardiac size is normal. Mediastinal contours are normal. There is no evidence for pulmonary edema. IMPRESSION: No acute cardiopulmonary findings. No change in appearance of the chest. ACT 112: Negative or not required by law. Electronically signed by: Jeffry Santamaria M.D. 02/18/2024 5:27 PM Discharge Plan Visit Data Chief Complaint: Rectal Bleed Stated Complaint: RECTAL BLEEDING ED Provider: Brian Bonilla Discharge Problem: Rectal bleeding, Anemia Patient Disposition: Admitted As Inpatient Discharge Instructions Interventions: ED Discharge Assessment Last Done: 02/18/24 20:25 Discharge Problem: Anemia Qualifiers: Anemia type: unspecified type Qualified Code(s): D64.9 - Anemia, unspecified
[2024-02-18 15:50] LABS: Albumin Globulin Ratio 1.4 (0.9-2); Albumin Level 4.4 gm/dl (3.4-5.0); Bilirubin,Total 0.3 mg/dl (0.2-1.0); Calcium 9.1 mg/dl (8.6-10.3); Est GFR (African American) 65.4 ml/min; Est GFR (Non-African American) 56.5 ml/min; Globulin 3.2 gm/dl (2.5-4.0); Potassium 4.8 mmol/L (3.5-5.1); Total Protein 7.6 gm/dl (6.0-8.3)
[2024-02-18 15:57] LABS: Troponin I High Sensitivity 9.3 pg/ml (0-20)
[2024-02-18 16:00] LABS: INR 0.9 (0.9-1.1); Partial Thromboplastin Time 26 Seconds (21-31); Prothrombin Time 10.3 Seconds (9.0-12.0)
[2024-02-18] MEDS: PANTOprazole 80 MG in DEXTROSE 5% 100 ML IV ONE (16:55)
[2024-02-18] MEDS: PANTOPRAZOLE BOLUS/DRIP IV STA (16:55)
--- NOTE | 2024-02-18 16:59 | Hospitalist Consultation ---
Date of Consultation February 18, 2024 History of Present Illness History of Present Illness Ammon is a 73-year-old male with past medical history of left lung cancer, DVT, PE, COPD who presents for evaluation of hematochezia. Hemoglobin 12.6, baseline approximately 1012. BUN is not elevated. Patient has had 1 day of bright red bloody diarrhea without abdominal pain. He is on Eliquis Ammon is seen at the bedside. He reports that he has had some intermittent bright red blood per rectum on the toilet paper before but is always been a small amount, thinks he may have some hemorrhoids. He reports today he had 4 bowel movements all with bright red blood in the toilet. Reports that this was made mostly light and bright red, no dark red blood, maroon blood or clots. No melena. He does not have any abdominal or epigastric pain. He has not felt lightheaded or dizzy. No chest pain or chest pressure. He is on Eliquis with a past history of DVT/PE x 2 episodes, last episode was more than a year ago. He does not have history of GERD. Does have a history of lung cancer s/p left lobectomy. He does not have a history of colon cancer, does get regular colonoscopies last was at [facility]. Records pending from case management. Reports that he, other than having the bright red blood per rectum, actually feels quite well and does not feel ill. Denies fever, chills, sweats. No nausea/vomiting. Hematochezia, history of diverticulosis, polyps, and internal hemorrhoids 4X episodes of painless hematochezia. No melena. BUN is not elevated. No abdominal or epigastric pain Hemoglobin is actually uptrending from prior, he is on Eliquis Repeat 2-hour H&H [] Will hold Eliquis for 24 hours. He is normotensive, has no syncopal/presyncopal symptoms, and is not tachycardic Possibly 03/2023 with multiple polyps, diverticulosis of the sigmoid and desc ending colon, and nonbleeding internal hemorrhoids were noted. Follow-up colonoscopy 05/19/2023 reviewed. At that time 140 mm polyp in the sigmoid colon 25 cm proximal to the anus was removed with endoscopic submucosal dissection. Resected and retrieved, endoscopic suturing was performed and site was tattooed. No complications. No bleeding at that time. Pathology showed adenomatous polyp; repeat exam was recommended in approximately 1 year. Suspect most likely etiology is either diverticular versus hemorrhoidal bleeding. Patient is due for his repeat colonoscopy. - [GI] S/p left lobectomy, robotic VATS 06/2022 At [facility] COPD Continue home inhalers, no acute exacerbation A-fib/flutter Follows with [facility] cardiology. DVT/PE, additional history 2004 of superficial phlebitis of the right leg Allergies Allergy/AdvReac Type Severity Reaction Status Date / Time doxycycline AdvReac Unknown VOMITING Verified 10/14/23 16:21 Home Medications Medication Instructions Recorded Confirmed Type omeprazole 20 mg capsule,delayed 20 mg PO QAM 11/20/21 10/14/23 History release cetirizine 10 mg capsule (Zyrtec) 10 mg PO DAILY PRN Allergy Symptoms 01/16/23 10/14/23 History apixaban 5 mg tablet 5 mg PO BID #60 tabs 07/11/23 10/14/23 Rx albuterol sulfate 1.25 mg/3 mL 1.25 mg (3 mL) inhalation QID PRN 09/10/23 10/14/23 Rx solution for nebulization shortness of breath or wheezing #75 mL compressor, for nebulizer #1 ea 09/10/23 10/14/23 Rx losartan 100 mg tablet 100 mg PO QAM #90 tabs 09/10/23 10/14/23 Rx metoprolol succinate 25 mg 12.5 mg (1/2 x 25 mg) PO QAM #90 09/10/23 10/14/23 Rx tablet,extended release 24 hr tabs multivitamin 1 tab PO DAILY 09/10/23 10/14/23 History fluticasone fur. 100 mcg-umeclid 1 inh inhalation QAM #60 ea 09/17/23 10/14/23 Rx 62.5 mcg-vilant 25 mcg inhalat.powder (Trelegy Ellipta) gabapentin 300 mg capsule 300 mg PO TID PRN nerve pain #270 10/14/23 10/14/23 Rx caps magnesium 200 mg tablet 400 mg (2 x 200 mg) PO BID #180 10/14/23 10/14/23 Rx tabs albuterol sulfate 90 mcg/actuation 2 puff inhalation Q6H PRN 11/04/23 Rx aerosol inhaler shortness of breath or wheezing #18 grams allopurinol 300 mg tablet 300 mg PO QAM #90 tabs 12/15/23 Rx Patient History Medical History Acid reflux Adenocarcinoma of left lung, stage 3 dx 12/2021, sx tx at [facility], all other tx at [facility] cancer enter Atrial flutter f/u [facility] Blood clot in vein years ago, in both legs>travelled to lungs; no current issues Cavitating mass of lower lobe of left lung 11/07/2021-left lower lobe mass with mild central cavitation measures up to 8.6 cm>sx to remove COPD (chronic obstructive pulmonary disease) daily and prn inh>uses rescue inhaler every morning, sometimes twice daily Eosinophilic spongiosis Gout Hypertension Hypomagnesemia Pulmonary embolism years ago, travelled from one of his legs PVD (peripheral vascular disease) Tobacco abuse Cessation 11/2021.>smoked for 50 years Surgical History Hx of colonoscopy Hx of bilateral cataract extraction S/P lobectomy of lung (07/03/22) S/P bronchoscopy with bronchoalveolar lavage History of neck surgery Family History Father Stroke Heart disease Myocardial infarction Mother Myocardial infarction Diabetes Sister No problems noted. Brother Cancer Lung cancer Brother Kidney disease Cancer Social History Smoking Status: Former smoker Tobacco Type: Cigarettes Age Started Using Tobacco: 16; packs per day: 1; Cigarettes Per Day: 20; Second Hand Exposure: No; Do You Dip or Chew Tobacco: No; Hx Alcohol Use: Yes (hx-none for quite some time) Alcohol type: beer Alcohol Intake Frequency: 4 or More x per/Week Hx Substance Use: Yes Last Used Substance Other:: years ago Preferred Language: Croatian Communication Ability: Effective Visual Impairment: No Limitations Hearing Ability: Normal Boiler Maker Required: No Beliefs That Will Affect Care: None marital status: Current Living Situation: Spouse current occupational status: retired 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 How many Children do You have: 2 Feels Safe at Home: Yes Diet: regular Diet Comment: regular caffeine: Yes during the past year weight has: remained stable Dental Care, Regularly: Yes Physical Activity Frequency: Daily Seatbelt Use: always Sunscreen Use: No Assistive Devices: Denture - Upper Results & Data Results & Data Vital Signs (Past 12 Hours) Vital Signs Temp Pulse Resp BP Pulse Ox O2 Del Method 02/18/24 15:42 62 02/18/24 13:58 36.4 C L 73 20 159/91 H 94 Room Air PG Care Time/CCT Total # of Minutes Spent Total Time Spent with Patient: Total time spent is greater than 50% in coordination of care (as documented) at patient's floor/unit and/or counseling patient: Coding
[2024-02-18] MEDS: PANTOprazole 40 MG in DEXTROSE 5% MINI-B 100 ML IV SCH (17:16)
--- NOTE | 2024-02-18 17:30 | XRay Report ---
XR chest 1V portable CLINICAL HISTORY: h/o COPD, coarse sounds b/l COMPARISON STUDY: Chest radiograph March 04, 2022. Chest CT October 15, 2023. FINDINGS: Postoperative findings within the spine are incidentally noted. There are postoperative fin dings within the left hemithorax. Lungs are clear. There is no pneumothorax or pleural effusion. Card iac size is normal. Mediastinal contours are normal. There is no evidence for pulmonary edema. IMPRESSION: No acute cardiopulmonary findings. No change in appearance of the chest. ACT 112: Negative or not required by law. Electronically signed by: Jeffry Santamaria M.D. 02/18/2024 5:27 PM
[2024-02-18 17:49] LABS: Hemoglobin 11.8 g/dl (14.0-18.0)
--- NOTE | 2024-02-18 18:36 | History & Physical Report ---
Date of Service February 18, 2024 Assessment & Plan (1) Hematochezia: Plan: Hematochezia, history of diverticulosis, polyps, and internal hemorrhoids 4X episodes of painless hematochezia. No melena. BUN is not elevated. No abdominal or epigastric pain Hemoglobin is actually uptrending from prior, he is on Eliquis Repeat 2-hour H&H downtrending by ~1g/dL. Will observe overnight for stability Will hold Eliquis for 24 hours. He is normotensive, has no syncopal/presyncopal symptoms, and is not tachycardic Possibly 03/2023 with multiple polyps, diverticulosis of the sigmoid and descending colon, and nonbleeding internal hemorrhoids were noted. Follow-up colonoscopy 05/19/2023 reviewed. At that time 140 mm polyp in the sigmoid colon 25 cm proximal to the anus was removed with endoscopic submucosal dissection. Resected and retrieved, endoscopic suturing was performed and site was tattooed. No complications. No bleeding at that time. Pathology showed adenomatous polyp; repeat exam was recommended in approximately 1 year. Suspect most likely etiology is either diverticular versus hemorrhoidal bleeding. Hgb downtrending. Patient is due for his repeat colonoscopy. GI consulted. Oral meds held for GI bleed. Metoprolol converted to IV Type and screen on file, consent on file (2) Atrial flutter: Plan: A-fib Sinus on admission Eliquis held for bleeding Follow on medical telemetry Metoprolol converted to IV while n.p.o. (3) Pulmonary embolism: Plan: History of DVT/PE Last episode many years ago, 1 episode DVT/PE, 1 episode of superficial phlebitis Anticoagulation temporarily held for hematochezia Plan Chronic stable issues: S/p left lobectomy, robotic VATS 06/2022. At [facility] [place] - COPD:Continue home inhalers, no acute exacerbation DVT prophylaxis: SCDs Diet: N.p.o. Disposition: Medical telemetry CODE STATUS: Full code History of Present Illness Primary Care Provider: DOTTIE Robles Ammon is a 73-year-old male with past medical history of left lung cancer, DVT, PE, COPD who presents for evaluation of hematochezia. Hemoglobin 12.6, baseline approximately 1012. BUN is not elevated. Patient has had 1 day of bright red bloody diarrhea without abdominal pain. He is on Eliquis Ammon is seen at the bedside. He reports that he has had some intermittent bright red blood per rectum on the toilet paper before but is always been a small amount, thinks he may have some hemorrhoids. He reports today he had 4 bowel movements all with bright red blood in the toilet. Reports that this was made mostly light and bright red, no dark red blood, maroon blood or clots. No melena. He does not have any abdominal or epigastric pain. He has not felt lightheaded or dizzy. No chest pain or chest pressure. He is on Eliquis with a past history of DVT/PE x 2 episodes, last episode was more than a year ago. He does not have history of GERD. Does have a history of lung cancer s/p left lobectomy. He does not have a history of colon cancer, does get regular colonoscopies last was at [place]. Records pending from case management. Reports that he, other than having the bright red blood per rectum, actually feels quite well and does not feel ill. Denies fever, chills, sweats. No nausea/vomiting. Medical History: Reviewed Medications: Reviewed Surgical History: Reviewed Family history: Reviewed Allergies: Reviewed Social History: Reviewed Code Status: Full Allergies Allergy/AdvReac Type Severity Reaction Status Date / Time doxycycline AdvReac Unknown VOMITING Verified 10/14/23 16:21 Home Medications Medication Instructions Recorded Confirmed Type omeprazole 20 mg capsule,delayed 20 mg PO QAM 11/20/21 10/14/23 History release cetirizine 10 mg capsule (Zyrtec) 10 mg PO DAILY PRN Allergy Symptoms 01/16/23 10/14/23 History apixaban 5 mg tablet 5 mg PO BID #60 tabs 07/11/23 10/14/23 Rx albuterol sulfate 1.25 mg/3 mL 1.25 mg (3 mL) inhalation QID PRN 09/10/23 10/14/23 Rx solution for nebulization shortness of breath or wheezing #75 mL compressor, for nebulizer #1 ea 09/10/23 10/14/23 Rx losartan 100 mg tablet 100 mg PO QAM #90 tabs 09/10/23 10/14/23 Rx metoprolol succinate 25 mg 12.5 mg (1/2 x 25 mg) PO QAM #90 09/10/23 10/14/23 Rx tablet,extended release 24 hr tabs multivitamin 1 tab PO DAILY 09/10/23 10/14/23 History fluticasone fur. 100 mcg-umeclid 1 inh inhalation QAM #60 ea 09/17/23 10/14/23 Rx 62.5 mcg-vilant 25 mcg inhalat.powder (Trelegy Ellipta) gabapentin 300 mg capsule 300 mg PO TID PRN nerve pain #270 10/14/23 10/14/23 Rx caps magnesium 200 mg tablet 400 mg (2 x 200 mg) PO BID #180 10/14/23 10/14/23 Rx tabs albuterol sulfate 90 mcg/actuation 2 puff inhalation Q6H PRN 11/04/23 Rx aerosol inhaler shortness of breath or wheezing #18 grams allopurinol 300 mg tablet 300 mg PO QAM #90 tabs 12/15/23 Rx Past Med/Surg History Problem List (Updated 02/18/24 @ 18:29 by Mahendra Sky MD) Hematochezia Contact dermatitis resolved Eosinophilic spongiosis Hypomagnesemia S/P lobectomy of lung (07/03/22) status post robotic left VATS, thoracotomy, lower left lobectomy and node dissection Completed by [facility]. [facility] Gout Hypertension COPD (chronic obstructive pulmonary disease) daily and prn inh>uses rescue inhaler every morning, sometimes twice daily Atrial flutter f/u [facility] Acid reflux Adenocarcinoma of left lung, stage 3 dx 12/2021, sx tx at [facility], all other tx at [facility] cancer enter Cavitating mass of lower lobe of left lung 11/07/2021-left lower lobe mass with mild central cavitation measures up to 8.6 cm>sx to remove PVD (peripheral vascular disease) Medical History Acid reflux Adenocarcinoma of left lung, stage 3 dx 12/2021, sx tx at [facility], all other tx at [facility] cancer enter Atrial flutter f/u [facility], [facility] Blood clot in vein years ago, in both legs>travelled to lungs; no current issues Cavitating mass of lower lobe of left lung 11/07/2021-left lower lobe mass with mild central cavitation measures up to 8.6 cm>sx to remove COPD (chronic obstructive pulmonary disease) daily and prn inh>uses rescue inhaler every morning, sometimes twice daily Eosinophilic spongiosis Gout Hypertension Hypomagnesemia Pulmonary embolism years ago, travelled from one of his legs PVD (peripheral vascular disease) Tobacco abuse Cessation 11/2021.>smoked for 50 years Surgical History Hx of colonoscopy Hx of bilateral cataract extraction S/P lobectomy of lung (07/03/22) S/P bronchoscopy with bronchoalveolar lavage History of neck surgery Family History Father Stroke Heart disease Myocardial infarction Mother Myocardial infarction Diabetes Sister No problems noted. Brother Cancer Lung cancer Brother Kidney disease Cancer Social History Smoking Status: Former smoker Tobacco Type: Cigarettes Age Started Using Tobacco: 16; packs per day: 1; Cigarettes Per Day: 20; Second Hand Exposure: No; Do You Dip or Chew Tobacco: No; Hx Alcohol Use: Yes (hx-none for quite some time) Alcohol type: beer Alcohol Intake Frequency: 4 or More x per/Week Hx Substance Use: Yes Last Used Substance Other:: years ago Preferred Language: Jamaican Communication Ability: Effective Visual Impairment: No Limitations Hearing Ability: Normal Manager Plumbing Required: No Beliefs That Will Affect Care: None marital status: Current Living Situation: Spouse current occupational status: retired 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 NAD. Cooperative. HEENT: Atraumatic, normocephalic. Pulm:L diminished. R Clear, w/o -wheezes, -rales, -rhonchi. Symmetrical chest rise. No increased work of breathing. No respiratory distress. Cardiac: RRR, -mrg. Radial pulses intact and symmetrical. Abdominal: Nontender, nondistended, soft. BS present. Results & Data Results & Data Vital Signs (Past 12 Hours) Vital Signs Temp Pulse Pulse Resp BP BP Pulse Ox 02/18/24 17:00 65 18 131/57 L 97 02/18/24 15:42 62 02/18/24 13:58 36.4 C L 73 20 159/91 H 94 O2 Del Method 02/18/24 17:00 Room Air 02/18/24 15:42 02/18/24 13:58 Room Air PG Care Time/CCT Total # of Minutes Spent Total Time Spent with Patient: Total time spent is greater than 50% in coordination of care (as documented) at patient's floor/unit and/or counseling patient: Coding Level of Care Code 21669 INT INP/OBS CARE 3/75MIN Diagnoses Hematochezia K92.1 Atrial flutter I48.92 Pulmonary embolism I26.99
[2024-02-18] MEDS ORDERED: ALBUTEROL HFA 8 GM INHALER INH PRN (20:39)
[2024-02-18] MEDS: LACTATED RINGER'S 1,000 ML IV SCH (21:43)
--- OUTSIDE RECORDS SUMMARY | 2024-02-18 22:41 | External Medical Summary | Summary of Care ---
Author Name Unknown Organization [facility] Address [address] [place] [address] Phone [phone] Care Team Providers Care Supervising Chef Name Role Phone Nikko Tejeda Primary Care Provider Reason for Visit * Reason Onset Date Comments Test Results 09/16/2023 Encounter Details Date Type Department Care Team (Late st Contact Info) Description 09/16/2023 Telephone Cardiology, [facility] [address] [facility] [place] [address] Luis Pierson PA-C [address] [facility] [place] [address] Test Results Allergies Active Allergy Reactions Criticality Noted Date Comments Doxycycline Nausea/vomiting 07/17/2022 documented as of this encounter (statuses as of 09/25/2023) Medications Medication Sig Dispensed Refills Start Date End Date Status Albuterol Sulfate HFA 108 (90 Base) MCG/ACT Inhalation Aerosol Solution Inhale 1 Puff by mouth as needed. 0 12/31/2021 Active Allopurinol 300 MG Oral Tablet (Zyloprim) Take 1 Tablet by mouth in the morning. 0 12/12/2021 Active Trelegy Ellipta 100-62.5-25 MCG/INH Aerosol Powder Breath Activated Inhale 1 Puff by mouth in the morning. 0 12/19/2021 Active Gabapentin 300 MG Oral Capsule (Neurontin) Take 1 Capsule by mouth in the morning and 1 Capsule at noon and 1 Capsule before bedtime. 0 05/08/2022 Active Multivitamin Oral Tablet Take 1 Tablet by mouth in the morning. 0 03/04/2022 Active Omeprazole 20 MG Oral Capsule Delayed Release (PriLOSEC) Take 1 Capsule by mouth in the morning. 0 11/20/2021 Active Magnesium Oxide -Mg Supplement 400 MG Oral Capsule Take 1 Capsule by mouth in the morning and 1 Capsule before bedtime. 0 08/01/2022 Active Permethrin 5 % External Cream (Elimite) PLEASE SEE ATTACHED FOR DETAILED DIRECTIONS 0 08/14/2022 Active Triamcinolone Acetonide 0.1 % External Cream (Aristocort) APPLY TOPICALLY TWICE DAILY TO AFFECTED AREAS 0 08/20/2022 Active Metoprolol Succinate ER 25 MG Oral Tablet Extended Release 24 Hour (toPROL XL) TAKE 1/2 TABLET BY MOUTH IN THE MORNING 16 Tablet 5 12/16/2022 Active Losartan Potassium 50 MG Oral Tablet (Cozaar) Take 1 Tablet by mouth in the morning. In the morning.. 0 Active Eliquis 5 MG Oral Tablet Take 1 Tablet by mouth in the morning and 1 Tablet before bedtime. 0 Active Cetirizine HCl 10 MG Oral Capsule Take 1 Capsule by mouth in the morning. 0 01/16/2023 Active documented as of this encounter (statuses as of 09/25/2023) Active Problems Problem Noted Date Diagnosed Date Chronic pulmonary embolism without acute cor pul monale 05/14/2022 Chronic anticoagulation 05/14/2022 Macrocytic anemia 01/26/2022 COPD exacerbation 01/26/2022 Hypophosphatemia 01/26/2022 Hypomagnesemia 01/26/2022 Paroxysmal atrial fibrillation 01/26/2022 Hyponatremia 01/26/2022 Malnutrition of moderate degree 01/24/2022 Primary malignant neoplasm of left lower lobe of lung 11/15/2021 Cancer Staging:Clinical stage from 12/26/2021:Stage IIIA(cT4, cN0, cM0) - Signed by Nikko Mccoy MD on 12/26/2021 Pathologic stage from 07/29/2022: ypT0, pN0, cM0 - Signed by Nikko Mccoy MD on 08/13/2022 documented as of this encounter (statuses as of 09/25/2023) Resolved Problems Problem Noted Date Diagnosed Date Resolved Date CARLOS (acute kidney injury) 07/10/2022 Acute metabolic encephalopathy 01/26/2022 01/29/2022 Pneumonia of both lower lobe s due to infectious organism 01/26/2022 07/02/2022 Sepsis 01/26/2022 01/29/2022 documented as of this encounter (statuses as of 09/25/2023) Immunizations Name Administration Dates Next Due COVID-19 mRNA, LNP-s, No Pre serve, 2-Dose Series ([employer]) 04/16/2021,09/07/2020,08/17/2020 Covid-19, Mrna, Lnp-s, Pf, B ivalent, 30 Mcg, IM, 12 yrs and above ([employer]) 03/19/2022 Seasonal Influenza, Quadriva lent Hd, 65+ Yrs 03/19/2022 documented as of this encounter Social History Tobacco Use Types Packs/Day Years Used Date Smoking Tobacco: Former Cigarettes Q uit: 12/07/2021 Smokeless Tobacco: Former Chew Alcohol Use Standard Drinks/Week Comments Not Currently 0 (1 standard drink = 0.6 oz pur e alcohol) Sex and Gender Information Value Date Recorded Sex Assigned at Not on file Gender Identity Not on file Sexual Orientation Not on file Job Start Date Occupation Industry Not on file Not on file Not on file documented as of this encounter Functional Status Functional Status Response Date of Assess ment Are you deaf or do you have serious difficulty h earing? No 07/03/2022 Are you blind or do you have serious difficulty seeing, even when wearing glasses? No 07/03/2022 Do you have serious difficul ty walking or climbing stairs? (5 years old or older) No 07/03/2022 Do you have difficulty dress ing or bathing? (5 years old or older) No 07/03/2022 Because of a physical, menta l, or emotional condition, do you have difficulty doing errands alone such as visiting a doctor s office or shopping? (15 years old or older) No 07/03/19 Cognitive Status Response Date of Assessm ent Because of a physical, menta l, or emotional condition, do you have serious difficulty concentrating, remembering, or making decisions? (5 years old or older) No 07/03/2022 documented as of this encounter Miscellaneous Notes * Telephone Encounter - Natalia Minaya CMA - 09/25/2023 1:56 PM EDT Letter mailed. * Telephone Encounter - Natalia Minaya CMA - 09/16/2023 12:09 PM EDT My g sent * Telephone Encounter - Natalia Minaya CMA - 09/16/2023 12:07 PM EDT ----- Message from Luis Pierson PA-C sent at 09/12/2023 1:13 PM EDT ----- September 11, 2023 TTE Interpretation Summary (as per Dr. Waite): The left ventricular cavity size is normal. The LV wall thickness is mildly increased (concentric). The left ventricular wall motion is normal. The qualitative LV ejection fraction is 60-64% (normal). The left ventricular diastolic function is mildly abnormal (grade I). Mild aortic valve sclerosis is present. Echo looks OK. No evidence of an old heart attack by echo. Lexiscan nuclear stress testing pending. documented in this encounter Plan of Treatment Upcoming Encounters Date Type Department Care Team (Late st Contact Info) Description 11/11/2023 8:45 AM EDT Imaging [facility] 2nd Floor Cardiology, [place] [address] [place] [address] Gw, Excess Time Radiology [address] [address] Scheduled Procedures Name Priority Associated Diagnoses Date/Ti me COLONOSCOPY FLEXIBLE PROXIMA L DIAGNOSTIC Recall History of colonic polyps Health Maintenance Due Date Last Done Comments Lipid Panel 1952 Depression Screening 1964 Alpha-1 Antitrypsin 1970 DTaP,Tdap,and Td Vaccines (1 - Tdap) 1971 AAA Screening 2017 *COPD SEVERITY VERIFIED BY PFT 01/28/2022 Zoster Vaccines (2 of 2) 06/19/2023 04/24/2023 COLONOSCOPY-ANNUAL AGES 18-100 05/19/2024 05/19/2023, 05/19/2023 O2 ASSESSMENT COMPLETED IN PAST YEAR FOR COPD 05/19/2024 05/19/2023 Pneumococcal Vaccine: 65+ Years Completed 01/16/2023 Influenza Vaccine (FLU shot) Completed 02/18/2023, 03/19/2022, 03/19/2022, Additional history exists COVID-19 Vaccine Completed 04/24/2023, , 03/19/2022, Additional history exists Colonoscopy Discontinued 05/19/2023, 05/19/2023 Colorectal Cancer Screening Discontinued Cologuard Discontinued Fecal Occult Blood Test Discontinued GARDASIL-HPV IMMUNIZATION SERIES Aged Out No longer eligible based on patient's age to complete this topic Hepatitis B Aged Out No longer eligi ble based on patient's age to complete this topic MENINGOCOCCAL (MENACTRA/MENVEO) Aged Out No longer eligible based on patient's age to complete this topic Sigmoidoscopy Discontinued documented as of this encounter Medical Devices Not on filedocumented as of this encounter Advance Directives Latest Code Status on File Code Status Date Activated Date Inactivated Comments Full Code 07/03/2022 6:56 PM 07/10/2022 4:48 PM This o rder reflects the patients wishes and were consensually agreed upon. Question Answer Comments Discussion of Advance Directives occurred with: Patient Code Status History Code Status Date Activated Date Inactivated Comments Full Code 01/23/2022 4:21 PM 01/28/2022 1:42 AM This order reflects the patients wishes and were consensually agreed upon. Question Answer Comments Discussion of Advance Directives occurred with: Not Discussed Care Teams Supervising Chef Relationship Specialty Start Date End Date Nikko Tejeda CRNP [address] [address] PCP - General Nurse Practitioner 02/01/22 documented as of this encounter
--- OUTSIDE RECORDS SUMMARY | 2024-02-18 22:41 | External Medical Summary | Summary of Care ---
Author Name Unknown Organization [facility] Address [address] [place] [address] Phone [phone] Care Team Providers Care Resource Director Name Role Phone Nikko Tejeda Primary Care Provider Reason for Visit * Reason Onset Date Comments Mycode Lab Reorder 10/10/2023 Encounter Details Date Type Department Care Team (Late st Contact Info) Description 10/10/2023 Orders Only Outcomes Research Department [address] [place] [address] Linnette Schwarz CHRA MyCode Research Other*[id number]* Allergies Active Allergy Reactions Criticality Noted Date Comments Doxycycline Nausea/vomiting 07/17/2022 documented as of this encounter (statuses as of 10/10/2023) Medications Medication Sig Dispensed Refills Start Date [...] as of this encounter (statuses as of 10/10/2023) Active Problems Problem Noted Date Diagnosed Date [...] as of this encounter (statuses as of 10/10/2023) Resolved Problems Problem Noted Date Diagnosed Date Resolved Date CARLOS (acute kidney injury) 07/10/2022 Acute metabolic encephalopathy 01/26/2022 01/29/2022 Pneumonia of both lower lobe s due to infectious organism 01/26/2022 07/02/2022 Sepsis 01/26/2022 01/29/2022 documented as of this encounter (statuses as of 10/10/2023) Immunizations Name Administration Dates Next Due COVID-19 mRNA, LNP-s, No Pre serve, 2-Dose Series ([employer]) 04/16/2021,09/07/2020,08/17/2020 Covid-19, Mrna, Lnp-s, Pf, B ivalent, 30 Mcg, IM, 12 yrs and above ([employer]) 03/19/2022 Seasonal Influenza, Quadriva lent Hd, 65+ [...] No 07/03/2022 documented as of this encounter Progress Notes * Linnette Schwarz CHRA - 10/10/2023 10:38 AM EDT MyCode lab reordered. documented in this encounter Plan of Treatment Upcoming Encounters Date Type Department Care Team (Late st Contact Info) Description 11/11/2023 8:45 AM EDT [facility] [address] [place] [address] Gw, Excess Time Radiology [address] [place] [address] Scheduled Orders Name Type Priority Associated Diagnoses Orde r Schedule MYCODE INITIAL ADULT Lab Routine MyCode Research Other*[id number] Expected: 10/10/2023 (Approximate), Expires: 10/29/2024 Scheduled Procedures Name Priority Associated Diagnoses Date/Ti me COLONOSCOPY FLEXIBLE PROXIMA L DIAGNOSTIC Recall History of colonic polyps Health Maintenance Due Date Last Done Comments Lipid Panel 1952 Depression Screening 1964 Alpha-1 Antitrypsin 1970 DTaP,Tdap,and Td Vaccines (1 - Tdap) 1971 Cologuard 1997 Fecal Occult Blood Test 1997 Sigmoidoscopy 1997 AAA Screening 2017 *COPD SEVERITY VERIFIED BY PFT 01/28/2022 Zoster Vaccines (2 of 2) 06/19/2023 04/24/2023 Colonoscopy 05/19/2024 05/19/2023, 05/19/2023 Colorectal Cancer Screening 05/19/2024 O2 ASSESSMENT COMPLETED IN PAST YEAR FOR COPD 05/19/2024 05/19/2023 Pneumococcal Vaccine: 65+ Years Completed 01/16/2023 Influenza Vaccine (FLU shot) Completed 02/18/2023, 03/19/2022, 03/19/2022, Additional history exists COVID-19 Vaccine Completed 04/24/2023, , 03/19/2022, Additional history exists RETIRED - COLONOSCOPY-ANNUAL AGES 18-100 Discontinued 05/19/2023, 05/19/2023 GARDASIL-HPV IMMUNIZATION SERIES Aged Out No longer eligible based on patient's age to complete this topic Hepatitis B Aged Out No longer eligi ble based on patient's age to complete this topic MENINGOCOCCAL (MENACTRA/MENVEO) Aged Out No longer eligible based on patient's age to complete this topic documented as of this encounter Medical Devices Not on filedocumented as of this encounter Visit Diagnoses Diagnosis MyCode Research Other*[id number]- Primary documented in this encounter Advance Directives Latest Code Status [...] Directives occurred with: Not Discussed Care Teams Resource Director Relationship Specialty Start Date End Date Nikko Tejeda CRNP [address] [facility] [address] [place] [address] PCP - General Nurse Practitioner 02/01/22 documented as of this encounter
--- OUTSIDE RECORDS SUMMARY | 2024-02-18 22:41 | External Medical Summary | Summary of Care ---
Author Name Unknown Organization [facility] Address [address] [place] [address] Phone [phone] Care Team Providers Care Associate Financial Advisor Name Role Phone Nikko Tejeda Primary Care Provider Reason for Visit * Reason Onset Date Comments Test Results 09/16/2023 Encounter Details Date Type Department Care Team (Late st Contact Info) Description 09/16/2023 Telephone Cardiology, [facility] [address] [facility] [place] [address] Luis Pierson PA-C [address] [facility] [place] [address] Test Results Allergies Active Allergy Reactions Criticality Noted Date Comments Doxycycline Nausea/vomiting 07/17/2022 documented as of this encounter (statuses as of 09/16/2023) Medications Medication Sig Dispensed Refills Start Date [...] as of this encounter (statuses as of 09/16/2023) Active Problems Problem Noted Date Diagnosed Date [...] as of this encounter (statuses as of 09/16/2023) Resolved Problems Problem Noted Date Diagnosed Date Resolved Date CARLOS (acute kidney injury) 07/10/2022 Acute metabolic encephalopathy 01/26/2022 01/29/2022 Pneumonia of both lower lobe s due to infectious organism 01/26/2022 07/02/2022 Sepsis 01/26/2022 01/29/2022 documented as of this encounter (statuses as of 09/16/2023) Immunizations Name Administration Dates Next Due COVID-19 mRNA, LNP-s, No Pre serve, 2-Dose Series ([employer]) 04/16/2021,09/07/2020,08/17/2020 Covid-19, Mrna, Lnp-s, Pf, B ivalent, 30 Mcg, IM, 12 yrs and above ([employer]) 03/19/2022 Seasonal Influenza, Quadriva lent Hd, 65+ [...] g sent * Telephone Encounter - Natalia Minaay CMA - 09/16/2023 12:07 PM EDT ----- [...] Info) Description 11/11/2023 8:45 AM EDT Imaging [facility] [address] [place] [address] Gw, Excess Time Radiology [address] [place] [address] Scheduled Procedures Name Priority Associated Diagnoses Date/Ti [...] Directives occurred with: Not Discussed Care Teams Associate Financial Advisor Relationship Specialty Start Date End Date Nikko Tejeda CRNP [address] [facility] [address] [place] [address] PCP - General Nurse Practitioner 02/01/22 documented as of this encounter
--- OUTSIDE RECORDS SUMMARY | 2024-02-18 22:41 | External Medical Summary | Summary of Care ---
Author Name Unknown Organization [facility] Address [address] [place] [address] Phone [phone] Care Team Providers Care Import Export Manager Name Role Phone Nikko Tejeda Primary Care Provider Reason for Referral * Precert (Within 10 days (routine)) - Pending Review Specialty Diagnoses / Procedures Referred By Mohini t Referred To Contact Radiology Diagnoses Primary malignant neoplasm of left lower lobe of lung (HCC) Procedures CT CHEST W CONTRAST Nikko Mccoy MD [address] [place] [address] Referral ID Status Reason Start Date Expiration Date V isits Requested Visits Authorized [id number] Pending Review 10/09/[phone] Reason for Visit * Reason Onset Date Comments Appointment 10/02/2023 Encounter Details Date Type Department Care Team (Late st Contact Info) Description 10/02/2023 Telephone Thoracic Surg [facility] [address] [place] [address] Fela Shea, RN Appointment Allergies Active Allergy Reactions Criticality Noted Date Comments Doxycycline Nausea/vomiting 07/17/2022 documented as of this encounter (statuses as of 10/02/2023) Medications Medication Sig Dispensed Refills Start Date [...] as of this encounter (statuses as of 10/02/2023) Active Problems Problem Noted Date Diagnosed Date [...] as of this encounter (statuses as of 10/02/2023) Resolved Problems Problem Noted Date Diagnosed Date Resolved Date CARLOS (acute kidney injury) 07/10/2022 Acute metabolic encephalopathy 01/26/2022 01/29/2022 Pneumonia of both lower lobe s due to infectious organism 01/26/2022 07/02/2022 Sepsis 01/26/2022 01/29/2022 documented as of this encounter (statuses as of 10/02/2023) Immunizations Name Administration Dates Next Due COVID-19 mRNA, LNP-s, No Pre serve, 2-Dose Series ([employer]) 04/16/2021,09/07/2020,08/17/2020 Covid-19, Mrna, Lnp-s, Pf, B ivalent, 30 Mcg, IM, 12 yrs and above ([employer]) 03/19/2022 Seasonal Influenza, Quadriva lent Hd, 65+ [...] encounter Miscellaneous Notes * Telephone Encounter - Fela Shea RN - 10/02/2023 10:29 AM EDT Called Mr. Rodriguez and left a VM with my name and call back number, he is due for his next CT chest for lung cancer surveillance and then follow up appt with Dr. Mccoy. I called his as well, did talk to her and made her aware of the above as well. [facility] She thanked me for the call. Fela Shea RN MSN [facility] Thoracic Surgery Nurse Navigator [facility] documented in this encounter Plan of Treatment Upcoming Encounters Date Type Department Care Team (Late st Contact Info) Description 11/11/2023 8:45 AM EDT Imaging [facility] 2nd Floor Cardiology, [place] [address] [place] [address] Gw, Excess Time Radiology [address] [place] [address] Scheduled Orders Name Type Priority Associated Diagnoses Orde r Schedule CT CHEST W CONTRAST Medical Imaging Routine Primary malignant neoplasm of left lower lobe of lung (HCC) Expected: 10/09/2023, Expires: 10/31/2024 CREATININE Lab Routine Primary malignant neoplasm of left lower lobe of lung (HCC) Expected: 10/09/2023, Expires: 10/01/2024 Scheduled Procedures Name Priority Associated Diagnoses Date/Ti [...] as of this encounter Visit Diagnoses Diagnosis Primary malignant neoplasm of left lower lobe of lung (HCC)- Primary Malignant neoplasm of lower lobe, bronchus, or lung documented in this encounter Advance Directives Latest [...] Directives occurred with: Not Discussed Care Teams Import Export Manager Relationship Specialty Start Date End Date Nikko Tejeda CRNP [address] [facility] [address] [place] [address] PCP - General Nurse Practitioner 02/01/22 documented as of this encounter
[2024-02-18 22:54] LABS: Hematocrit (blood only) 32.2 % (42.0-52.0); Hemoglobin 11.4 g/dl (14.0-18.0)
[2024-02-19] MEDS: METOPROLOL TARTRATE 1 MG/ML VIAL IV SCH (05:14)
[2024-02-19] MEDS: UMECLIDINIUM/VILANTEROL 62.5/25MCG 7 PUFFS/INHALER INH SCH (07:31)
[2024-02-19] MEDS: FLUTICASONE FUROATE 100MCG 14 PUFFS/INHALER INH SCH (07:31)
[2024-02-19 07:44] LABS: Basophils # (auto) 0.08 K/uL (0.00-0.20); Basophils % (auto) 1.2 %; Eosinophils # (auto) 0.19 K/uL (0.00-0.50); Eosinophils % (auto) 2.7 %; Hematocrit (blood only) 33.6 % (42.0-52.0); Hemoglobin 11.6 g/dl (14.0-18.0); Immature Granulocytes # (auto) 0.03 K/uL (0.01-0.20); Immature Granulocytes % (auto) 0.4 %; Lymphocytes % (auto) 14.5 %; Mean Corpuscular Hemoglobin 33.4 pg (25.0-34.0); Mean Corpuscular Hgb Conc 34.5 g/dL (32.0-36.0); Mean Corpuscular Volume 96.8 fL (80.0-100.0); Mean Platelet Volume 9.3 fL (9.4-12.4); Monocytes # (auto) 0.88 K/uL (0.11-0.59); Monocytes % (auto) 12.7 %; Neutrophils # (auto) 4.73 K/uL (1.40-6.50); Neutrophils % (auto) 68.5 %; Platelet Count 268 K/uL (130-400); RDW Coefficient of Variation 12.8 % (11.5-14.5); RDW Standard Deviation 45.1 fL (36.4-46.3); Red Blood Count 3.47 M/uL (4.70-6.10); White Blood Count 6.91 K/ul (4.8-10.8)
[2024-02-19 08:23] LABS: Calcium 9.1 mg/dl (8.6-10.3); Creatinine Clr Calc Pharmacy 68.5 ml/min; Est GFR (African American) 73.8 ml/min; Est GFR (Non-African American) 63.7 ml/min; Potassium 4.7 mmol/L (3.5-5.1)
[2024-02-19] MEDS ORDERED: NON-FORMULARY MEDICATION (Fluticasone-Umeclidin-Vilanter [Trelegy Ellipta] 100-62.5-25 mcg INH SCH (09:00)
--- NOTE | 2024-02-19 09:52 | Gastrointestinal Consultation ---
Date of Consultation February 19, 2024 Assessment & Plan (1) Hematochezia: Plan 73 year old male with history of left lung cancer, DVT, PE, COPD, large TA s/p ESD who presents for evaluation of painless hematochezia, 4 episodes yesterday. He has remained hemodynamically stable w/ HGB 11.6 w/o BUN elevation. Last dose of eliquis was yesterday AM. Suspected diverticular bleeding. Hold Eliquis Trend HGB Monitor and document GI output Transfuse per primary service If bleeding returns today, please arrange either stat CTA or a nuclear medicine bleeding scan. Consider stool studies as well given report of loose stools prior to development of hematochezia. Thank you for allowing us to participate in the care of this patient. Please call with any acute changes, questions or concerns. Please see addendum below with additional recommendation from my supervising physician. I spent a total of 60 minutes on the date of service in review of patient's record, and previously obtained information in person and appropriate medical visit, discussion and education of plan, with patient and/or caregiver, placing orders for tests/referral/procedures as medically necessary and documentation of pertinent clinical information in patient's medical records for their visit today. Supervising Physician Co-Signing Physician Notes Patient seen and examined. Case discussed with Kasey SINCLAIR. Painless, hemodynamically insignificant bleed. Patient has history of diverticulosis and large, complex adenomatous polyps. Rec: Advance diet Keep f/u with his advanced endoscopist as OP for elective colonsocopy. OK from GI standpoint to restart anticoagulation if needed. If bleeds acutely consider nuclear med bleeding scan or CTA IP GI Service will sign off for now - please recall if further questions or if clinical situation changes. History of Present Illness Reason for Consultation: rectal bleeding Requesting Physician: Juli Dorman MD Attending Physician: Juli Dorman MD History of Present Illness 73 year old male with history of left lung cancer, DVT, PE, COPD, large TA s/p ESD who presents for evaluation of hematochezia. Pt was seen and evaluated, chart reviewed. Notes that yesterday after lunch, felt the urgency to move his bowels - noted this was loose with BRB. Had 3/4 additional episodes of loose stools with bleeding which prompted ED evaluation. This AM, feeling well. No abd pain. No nausea, vomiting. Last BM was in the ED yesterday. He is anticoagulated on Eliquis. Last dose was yesterday AM. HGB 11.6 which is near baseline. No BUN elevation Allergies Allergy/AdvReac Type Severity Reaction Status Date / Time doxycycline AdvReac Unknown VOMITING Verified 02/18/24 20:06 Home Medications Medication Instructions Recorded Confirmed Type omeprazole 20 mg capsule,delayed 20 mg PO QAM 11/20/21 02/18/24 History release apixaban 5 mg tablet 5 mg PO BID #60 tabs 07/11/23 02/18/24 Rx albuterol sulfate 1.25 mg/3 mL 1.25 mg (3 mL) inhalation QID PRN 09/10/23 02/18/24 Rx solution for nebulization shortness of breath or wheezing #75 mL compressor, for nebulizer #1 ea 09/10/23 10/14/23 Rx losartan 100 mg tablet 100 mg PO QAM #90 tabs 09/10/23 02/18/24 Rx metoprolol succinate 25 mg 12.5 mg (1/2 x 25 mg) PO QAM #90 09/10/23 02/18/24 Rx tablet,extended release 24 hr tabs multivitamin 1 tab PO DAILY 09/10/23 02/18/24 History fluticasone fur. 100 mcg-umeclid 1 inh inhalation QAM #60 ea 09/17/23 02/18/24 Rx 62.5 mcg-vilant 25 mcg inhalat.powder (Trelegy Ellipta) gabapentin 300 mg capsule 300 mg PO TID PRN nerve pain #270 10/14/23 02/18/24 Rx caps albuterol sulfate 90 mcg/actuation 2 puff inhalation Q6H PRN 11/04/23 02/18/24 Rx aerosol inhaler shortness of breath or wheezing #18 grams allopurinol 300 mg tablet 300 mg PO QAM #90 tabs 12/15/23 02/18/24 Rx magnesium oxide 400 mg (241.3 mg 400 mg PO TID 02/18/24 02/18/24 History magnesium) tablet Patient History Medical History Acid reflux Adenocarcinoma of left lung, stage 3 dx 12/2021, sx tx at [facility], all other tx at [facility] cancer enter Atrial flutter f/u maico leary, [facility] Blood clot in vein years ago, in both legs>travelled to lungs; no current issues Cavitating mass of lower lobe of left lung 11/07/2021-left lower lobe mass with mild central cavitation measures up to 8.6 cm>sx to remove COPD (chronic obstructive pulmonary disease) daily and prn inh>uses rescue inhaler every morning, sometimes twice daily Eosinophilic spongiosis Gout Hypertension Hypomagnesemia Pulmonary embolism years ago, travelled from one of his legs PVD (peripheral vascular disease) Tobacco abuse Cessation 11/2021.>smoked for 50 years Surgical History Hx of colonoscopy Hx of bilateral cataract extraction S/P lobectomy of lung (07/03/22) S/P bronchoscopy with bronchoalveolar lavage History of neck surgery Family History Father Stroke Heart disease Myocardial infarction Mother Myocardial infarction Diabetes Sister No problems noted. Brother Cancer Lung cancer Brother Kidney disease Cancer Social History Smoking Status: Former smoker Tobacco Type: Cigarettes Age Started Using Tobacco: 16; packs per day: 1; Cigarettes Per Day: 20; Second Hand Exposure: No; Do You Dip or Chew Tobacco: No; Tobacco Cessation Education Requested by Patient: No Hx Alcohol Use: No Hx Substance Use: No Preferred Language: Greek Communication Ability: Effective Visual Impairment: No Limitations Hearing Ability: Normal Yarn Salvager Required: No Beliefs That Will Affect Care: None marital status: Current Living Situation: Spouse Current Living Situation Comment: lives with current 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 Physical Exam Constitutional: WD/WN, vitals as above Respiratory: normal respiratory effort, lungs clear to auscultation Cardiovascular: Rate/Rhythm: regular rate and regular rhythm Gastrointestinal (Abdomen): normal bowel sounds, soft, nontender, no hepatosplenomegaly Skin: no rashes, warm and dry Results & Data Vital Signs (Past 12 Hours) Vital Signs Temp Pulse Pulse Resp BP BP BP 02/19/24 08:10 36.4 C 63 16 143/71 H 02/19/24 07:00 58 L 02/19/24 05:50 152/80 H 02/19/24 05:20 65 174/80 H 02/19/24 01:55 36.6 C 67 18 170/78 H 02/18/24 22:56 36.6 C 66 16 165/80 H 02/18/24 22:05 66 Pulse Ox O2 Del Method 02/19/24 08:10 94 Room Air 02/19/24 07:00 02/19/24 05:50 02/19/24 05:20 02/19/24 01:55 94 Room Air 02/18/24 22:56 94 Room Air 02/18/24 22:05 Laboratory Results 02/19/24 02/18/24 02/18/24 Range/Units 07:01 22:35 17:19 WBC 6.91 (4.8-10.8) K/ul RBC 3.47 L (4.70-6.10) M/uL Hgb 11.6 L 11.4 L 11.8 L (14.0-18.0) g/dl Hct 33.6 L 32.2 L 35.0 L (42.0-52.0) % MCV 96.8 (80.0-100.0) fL MCH 33.4 (25.0-34.0) pg MCHC 34.5 (32.0-36.0) g/dL RDW Std Deviation 45.1 (36.4-46.3) fL RDW Coeff of Glenda 12.8 (11.5-14.5) % Plt Count 268 (130-400) K/uL MPV 9.3 L (9.4-12.4) fL Immature Gran % (Auto) 0.4 % Neut % (Auto) 68.5 % Lymph % (Auto) 14.5 % Mills % (Auto) 12.7 % Eos % (Auto) 2.7 % Baso % (Auto) 1.2 % Neut # (Auto) 4.73 (1.40-6.50) K/uL Lymph # (Auto) 1.00 L (1.20-3.40) K/uL Mills # (Auto) 0.88 H (0.11-0.59) K/uL Eos # (Auto) 0.19 (0.00-0.50) K/uL Baso # (Auto) 0.08 (0.00-0.20) K/uL Immature Gran # (Auto) 0.03 (0.01-0.20) K/uL PT (9.0-12.0) Seconds INR (0.9-1.1) APTT (21-31) Seconds PTT Ratio Sodium 135 L (136-145) mmol/L Potassium 4.7 (3.5-5.1) mmol/L Chloride 101 (98-107) mmol/L Carbon Dioxide 29 (21-32) mmol/L Anion Gap 5 (3-11) BUN 15 (6-23) mg/dl Creatinine 1.15 (0.6-1.4) mg/dl Est Cr Clr Drug Dosing 68.5 ml/min Est GFR ( Amer) 73.8 ml/min Est GFR (Non-Af Amer) 63.7 ml/min BUN/Creatinine Ratio 13.0 (10-20) Glucose 96 (70-99(Fasting)) mg/dl Calcium 9.1 (8.6-10.3) mg/dl Total Bilirubin (0.2-1.0) mg/dl AST (13-39) U/L ALT (7-52) U/L Alkaline Phosphatase (34-104) U/L Troponin I High Sens (0-20) pg/ml Total Protein (6.0-8.3) gm/dl Albumin (3.4-5.0) gm/dl Globulin (2.5-4.0) gm/dl Albumin/Globulin Ratio (0.9-2) Blood Type Antibody Screen 02/18/24 02/18/24 Range/Units 15:22 15:13 WBC 7.00 (4.8-10.8) K/ul RBC 3.72 L (4.70-6.10) M/uL Hgb 12.6 L (14.0-18.0) g/dl Hct 35.8 L (42.0-52.0) % MCV 96.2 (80.0-100.0) fL MCH 33.9 (25.0-34.0) pg MCHC 35.2 (32.0-36.0) g/dL RDW Std Deviation 45.4 (36.4-46.3) fL RDW Coeff of Glenda 12.8 (11.5-14.5) % Plt Count 316 (130-400) K/uL MPV 9.3 L (9.4-12.4) fL Immature Gran % (Auto) % Neut % (Auto) % Lymph % (Auto) % Mills % (Auto) % Eos % (Auto) % Baso % (Auto) % Neut # (Auto) (1.40-6.50) K/uL Lymph # (Auto) (1.20-3.40) K/uL Mills # (Auto) (0.11-0.59) K/uL Eos # (Auto) (0.00-0.50) K/uL Baso # (Auto) (0.00-0.20) K/uL Immature Gran # (Auto) (0.01-0.20) K/uL PT 10.3 (9.0-12.0) Seconds INR 0.9 (0.9-1.1) APTT 26 (21-31) Seconds PTT Ratio 1.0 Sodium 133 L (136-145) mmol/L Potassium 4.8 (3.5-5.1) mmol/L Chloride 98 (98-107) mmol/L Carbon Dioxide 29 (21-32) mmol/L Anion Gap 6 (3-11) BUN 19 (6-23) mg/dl Creatinine 1.27 (0.6-1.4) mg/dl Est Cr Clr Drug Dosing 62.0 ml/min Est GFR ( Amer) 65.4 ml/min Est GFR (Non-Af Amer) 56.5 ml/min BUN/Creatinine Ratio 15.0 (10-20) Glucose 95 (70-99(Fasting)) mg/dl Calcium 9.1 (8.6-10.3) mg/dl Total Bilirubin 0.3 (0.2-1.0) mg/dl AST 21 (13-39) U/L ALT 12 (7-52) U/L Alkaline Phosphatase 121 H (34-104) U/L Troponin I High Sens 9.3 (0-20) pg/ml Total Protein 7.6 (6.0-8.3) gm/dl Albumin 4.4 (3.4-5.0) gm/dl Globulin 3.2 (2.5-4.0) gm/dl Albumin/Globulin Ratio 1.4 (0.9-2) Blood Type A Negative Antibody Screen NEGATIVE PG Care Time/CCT Total # of Minutes Spent Total Time Spent with Patient: Total time spent is greater than 50% in coordination of care (as documented) at patient's floor/unit and/or counseling patient: Coding Level of Care Code 99815 INT INP/OBS CARE 2/55MIN Diagnoses Hematochezia K92.1
--- NOTE | 2024-02-19 12:56 | Hospitalist Progress Note ---
Date of Service February 19, 2024 Assessment & Plan (1) Hematochezia: Plan: Hematochezia, history of diverticulosis, polyps, and internal hemorrhoids 4X episodes of painless hematochezia. No melena. BUN is not elevated. No abdominal or epigastric pain Hemoglobin trending down slightly. 11.6 today. Was on Eliquis Will hold Eliquis for 24 hours. He is normotensive, has no syncopal/presyncopal symptoms, and is not tachycardic Possibly 03/2023 with multiple polyps, diverticulosis of the sigmoid and descending colon, and nonbleeding internal hemorrhoids were noted. Follow-up colonoscopy 05/19/2023 reviewed. At that time 140 mm polyp in the sigmoid colon 25 cm proximal to the anus was removed with endoscopic submucosal dissection. Resected and retrieved, endoscopic suturing was performed and site was tattooed. No complications. No bleeding at that time. Pathology showed adenomatous polyp; repeat exam was recommended in approximately 1 year. Suspect most likely etiology is either diverticular versus hemorrhoidal bleeding. Hgb downtrending. Patient is due for his repeat colonoscopy. GI on board. Recommends stat CTA or nuclear medicine bleeding scan if he is rebleeds today. Start clear liquid diet Resume p.o. metoprolol Type and screen on file, consent on file (2) Atrial flutter: Plan: A-fib Sinus on admission Eliquis held for bleeding Follow on medical telemetry Resume p.o. metoprolol since he is able to take p.o. diet (3) Pulmonary embolism: Plan: History of DVT/PE Last episode many years ago, 1 episode DVT/PE, 1 episode of superficial phlebitis Anticoagulation temporarily held for hematochezia Plan Chronic stable issues: S/p left lobectomy, robotic VATS 06/2022. At [facility] [place] - COPD:Continue home inhalers, no acute exacerbation DVT prophylaxis: SCDs CODE STATUS: Full code Admission and Anticipated Discharge Date Admission Date: February 18, 2024 Subjective Patient feels better overall. Has not had bloody stools since yesterday. Denies chest pain or shortness of breath. Review of Systems Review of Systems: All systems reviewed & are unremarkable except as noted in Subjective Physical Exam Physical Exam: General: Awake, conversant Heart: S1, S2/regular rate and rhythm, no murmur rubs or gallops Lungs: Clear to auscultation bilaterally. Normal effort Abdomen: Soft/nontender/nondistended. No hepatosplenomegaly Extremities: No clubbing/cyanosis. No edema Behavior: Appropriate, cooperative Results & Data Results & Data Vital Signs (Past 12 Hours) Vital Signs Temp Pulse Pulse Resp BP BP BP 02/19/24 12:06 67 02/19/24 11:57 73 132/72 02/19/24 11:51 75 143/8 H 02/19/24 11:51 75 16 143/80 H 02/19/24 08:10 36.4 C 63 16 143/71 H 02/19/24 07:00 58 L 02/19/24 05:50 152/80 H 02/19/24 05:20 65 174/80 H 02/19/24 01:55 36.6 C 67 18 170/78 H Pulse Ox O2 Del Method 02/19/24 12:06 02/19/24 11:57 02/19/24 11:51 02/19/24 11:51 95 Room Air 02/19/24 08:10 94 Room Air 02/19/24 07:00 02/19/24 05:50 02/19/24 05:20 02/19/24 01:55 94 Room Air Laboratory Results Abnormal lab results 02/18/24 02/18/24 02/18/24 Range/Units 15:13 17:19 22:35 RBC 3.72 L (4.70-6.10) M/uL Hgb 12.6 L 11.8 L 11.4 L (14.0-18.0) g/dl Hct 35.8 L 35.0 L 32.2 L (42.0-52.0) % MPV 9.3 L (9.4-12.4) fL Lymph # (Auto) (1.20-3.40) K/uL Conway # (Auto) (0.11-0.59) K/uL Sodium 133 L (136-145) mmol/L Alkaline Phosphatase 121 H (34-104) U/L 02/19/24 Range/Units 07:01 RBC 3.47 L (4.70-6.10) M/uL Hgb 11.6 L (14.0-18.0) g/dl Hct 33.6 L (42.0-52.0) % MPV 9.3 L (9.4-12.4) fL Lymph # (Auto) 1.00 L (1.20-3.40) K/uL Conway # (Auto) 0.88 H (0.11-0.59) K/uL Sodium 135 L (136-145) mmol/L Alkaline Phosphatase (34-104) U/L Diagnostic Findings Chest X-Ray 02/18/24 17:05 XR chest 1V portable CLINICAL HISTORY: h/o COPD, coarse sounds b/l COMPARISON STUDY: Chest radiograph March 04, 2022. Chest CT October 15, 2023. FINDINGS: Postoperative findings within the spine are incidentally noted. There are postoperative findings within the left hemithorax. Lungs are clear. There is no pneumothorax or pleural effusion. Cardiac size is normal. Mediastinal contours are normal. There is no evidence for pulmonary edema. IMPRESSION: No acute cardiopulmonary findings. No change in appearance of the chest. ACT 112: Negative or not required by law. Electronically signed by: Jeffry Santamaria M.D. 02/18/2024 5:27 PM PG Care Time/CCT Total # of Minutes Spent Total Time Spent with Patient: Total time spent is greater than 50% in coordination of care (as documented) at patient's floor/unit and/or counseling patient: Coding Level of Care Code 50576 SUB INP/OBS CARE 2/35MIN Diagnoses Hematochezia K92.1 Atrial flutter I48.92 Pulmonary embolism I26.99
[2024-02-19] MEDS: METOPROLOL SUCC 25MG EXT REL TAB PO SCH (13:39)
--- NOTE | 2024-02-19 14:26 | Electrocardiogram Report ---
Test Reason : Blood Pressure : */* mmHG Vent. Rate : 66 BPM Atrial Rate : 66 BPM P-R Int : 176 ms QRS Dur : 86 ms QT Int : 400 ms P-R-T Axes : 44 -18 43 degrees QTcB Int : 419 ms Normal sinus rhythm Normal ECG When compared with ECG of 04-Mar-2022 19:43, Premature atrial complexes are no longer Present QT has shortened Confirmed by Librado Nowak ([id number]) on 02/19/2024 2:26:29 PM Referred By: REFERRED SELF Confirmed By: Librado Nowak
[2024-02-19 20:16] VITALS: RESP 18
[2024-02-20 02:32] VITALS: O2SAT 94
[2024-02-20] MEDS: OPTIRAY 320 125ml IV ONE (03:00)
[2024-02-20 03:09] LABS: Basophils # (auto) 0.08 K/uL (0.00-0.20); Basophils % (auto) 1.1 %; Eosinophils # (auto) 0.26 K/uL (0.00-0.50); Eosinophils % (auto) 3.7 %; Hematocrit (blood only) 31.4 % (42.0-52.0); Hemoglobin 11.2 g/dl (14.0-18.0); Immature Granulocytes # (auto) 0.02 K/uL (0.01-0.20); Immature Granulocytes % (auto) 0.3 %; Lymphocytes % (auto) 21.2 %; Mean Corpuscular Hemoglobin 33.7 pg (25.0-34.0); Mean Corpuscular Hgb Conc 35.7 g/dL (32.0-36.0); Mean Corpuscular Volume 94.6 fL (80.0-100.0); Mean Platelet Volume 9.1 fL (9.4-12.4); Monocytes # (auto) 0.89 K/uL (0.11-0.59); Monocytes % (auto) 12.6 %; Neutrophils # (auto) 4.31 K/uL (1.40-6.50); Neutrophils % (auto) 61.1 %; Platelet Count 243 K/uL (130-400); RDW Coefficient of Variation 12.8 % (11.5-14.5); RDW Standard Deviation 44.6 fL (36.4-46.3); Red Blood Count 3.32 M/uL (4.70-6.10); White Blood Count 7.06 K/ul (4.8-10.8)
[2024-02-20 03:24] LABS: BUN Creatinine Ratio 11.1 (10-20); Calcium 8.8 mg/dl (8.6-10.3); Creatinine Clr Calc Pharmacy 72.9 ml/min; Est GFR (African American) 79.6 ml/min; Est GFR (Non-African American) 68.7 ml/min
--- NOTE | 2024-02-20 03:43 | Communication Note ---
Date of Service: February 20, 2024 Reached out by nursing to report that patient had a rectal bleed. He had a soft bowel movement with moderate amounts of blood in the stools. Had about 100 cc of blood with it. Reviewed GI note which recommends to get either a stat CTA or a nuclear medicine bleeding scan. Will get stat CTA abdomen and pelvis. Will also get H&H. Hemodynamically stable at this time.
--- NOTE | 2024-02-20 06:51 | CT Scan Report ---
CT angio abd pelvis wo/w con CLINICAL HISTORY: GI bleed COMPARISON STUDY: CT of the abdomen and pelvis October 15, 2023. TECHNIQUE: Unenhanced and arterial phase imaging of the abdomen and pelvis was performed. Intravenous injection 118 cc of Optiray 320 IV was uneventful. Sagittal and coronal reconstructions were viewed as well as maximal intensity projections on an independent 3-D workstation. Automated exposure contro l was utilized for the study. A dose lowering technique was utilized adhering to the principles of A CLARE. FINDINGS: No pneumatosis, free air or portal venous gas is present. There is extensive aortoiliac ath erosclerotic plaque. There are moderate stenosis within the mid superior mesenteric artery. There is no abdominal aortic aneurysm. Moderate stenosis at the origin of the right internal iliac artery is n oted. Arterial phase images of liver, spleen, adrenal glands, kidneys and pancreas are unremarkable. There is no biliary or pancreatic ductal dilatation. There is no evidence for a bowel obstruction. Th e appendix is normal. There is colonic diverticulosis without evidence for acute diverticulitis. No i ntraluminal contrast within the bowel is identified on this examination to indicate source for GI ble ed. There is no lymphadenopathy. There are no fluid collections. IMPRESSION: 1. No intraluminal contrast identified within the bowel to indicate source for GI bleed by CT. 2. Extensive colonic diverticulosis. No evidence for acute diverticulitis. 3. Aortoiliac atherosclerotic plaque. Moderate stenosis of the mid SMA. No abdominal aortic aneurysm. 4. No acute process within the abdomen or pelvis. ACT 112: Negative or not required by law. Electronically signed by: Jeffry Santamaria M.D. 02/20/2024 6:49 AM
[2024-02-20 11:49] VITALS: BP 152/78; PULSE 66; TEMP 97.7
--- NOTE | 2024-02-20 13:36 | Discharge Summary ---
Date of Service February 20, 2024 Admission HPI Per Admitting Provider Ammon is a 73-year-old male with past medical history of left lung cancer, DVT, PE, COPD who presents for evaluation of hematochezia. Hemoglobin 12.6, baseline approximately 1012. BUN is not elevated. Patient has had 1 day of bright red bloody diarrhea without abdominal pain. He is on Eliquis Ammon is seen at the bedside. He reports that he has had some intermittent bright red blood per rectum on the toilet paper before but is always been a small amount, thinks he may have some hemorrhoids. He reports today he had 4 bowel movements all with bright red blood in the toilet. Reports that this was made mostly light and bright red, no dark red blood, maroon blood or clots. No melena. He does not have any abdominal or epigastric pain. He has not felt lightheaded or dizzy. No chest pain or chest pressure. He is on Eliquis with a past history of DVT/PE x 2 episodes, last episode was more than a year ago. He does not have history of GERD. Does have a history of lung cancer s/p left lobectomy. He does not have a history of colon cancer, does get regular colonoscopies last was at [place]. Records pending from case management. Reports that he, other than having the bright red blood per rectum, actually feels quite well and does not feel ill. Denies fever, chills, sweats. No nausea/vomiting. Medical History: Reviewed Medications: Reviewed Surgical History: Reviewed Family history: Reviewed Allergies: Reviewed Social History: Reviewed Code Status: Full Admission Exam Per Admitting Provider General: A&Ox3. NAD. Cooperative. HEENT: Atraumatic, normocephalic. Pulm:L diminished. R Clear, w/o -wheezes, -rales, -rhonchi. Symmetrical chest rise. No increased work of breathing. No respiratory distress. Cardiac: RRR, -mrg. Radial pulses intact and symmetrical. Abdominal: Nontender, nondistended, soft. BS present. Principal Diagnosis Acute GI bleed likely due to diverticular bleed Discharge Exam General: Awake, conversant Heart: S1, S2/regular rate and rhythm, no murmur rubs or gallops Lungs: Clear to auscultation bilaterally. Normal effort Abdomen: Soft/nontender/nondistended. No hepatosplenomegaly Extremities: No clubbing/cyanosis. No edema Behavior: Appropriate, cooperative Discharge Data Allergies Allergy/AdvReac Type Severity Reaction Status Date / Time doxycycline AdvReac Unknown VOMITING Verified 02/18/24 20:06 Consultations 02/18/24 16:20 ED Decision to Admit Stat 02/18/24 18:34 Consult Gastroenterology Routine Ordered Studies 02/20/24 02:36 CTA abd pelvis wo/w con [CT angio abd pelvis wo/w con] Stat Hospital Course (1) Hematochezia: Hematochezia, history of diverticulosis, polyps, and internal hemorrhoids 4X episodes of painless hematochezia. No melena. BUN is not elevated. No abdominal or epigastric pain Hemoglobin trending down slightly. 11.2 today. Was on Eliquis He is normotensive, has no syncopal/presyncopal symptoms, and is not tachycardic Possibly 03/2023 with multiple polyps, diverticulosis of the sigmoid and descending colon, and nonbleeding internal hemorrhoids were noted. Follow-up colonoscopy 05/19/2023 reviewed. At that time 140 mm polyp in the sigmoid colon 25 cm proximal to the anus was removed with endoscopic submucosal dissection. Resected and retrieved, endoscopic suturing was performed and site was tattooed. No complications. No bleeding at that time. Pathology showed adenomatous polyp; repeat exam was recommended in approximately 1 year. Suspect most likely etiology is either diverticular versus hemorrhoidal bleeding. Hgb downtrending. Patient is due for his repeat colonoscopy. GI on board. Recommends stat CTA or nuclear medicine bleeding scan if he is rebleeds today. Diet was advanced Patient had another episode of stool mixed with blood last night. However this morning he had a bowel movement that was not bloody at all. He thinks that he is getting better. His first few episodes were completely bloody at home followed by stool mixed with blood last night and this morning there was no blood at all. He has been very anxious to go home Discharge to home today after he tolerated a solid meal Discharged off of Eliquis. Eliquis to be held until cleared by his PCP (2) Atrial flutter: A-fib Sinus on admission Eliquis held for bleeding until cleared by PCP Follow on medical telemetry Resume p.o. metoprolol since he is able to take p.o. diet (3) Pulmonary embolism: History of DVT/PE Last episode many years ago, 1 episode DVT/PE, 1 episode of superficial phlebitis Anticoagulation temporarily held for hematochezia until cleared by PCP Plan Chronic stable issues: S/p left lobectomy, robotic VATS 06/2022. At [facility] – [place] - COPD:Continue home inhalers, no acute exacerbation Discharge to home today Total Time Total Time Spent Total Time Spent (In Minutes): 35 Discharge Plan Discharge Items Patient Disposition: Home - Self-Care Reason For Visit: LGIB Discharge Diagnosis: Acute GI bleed likely due to diverticular bleed Activity: Resume your previous activity Non-emergency contact: Primary Care Provider Call non-emergency contact if: you have any medication questions and your symptoms worsen Follow-up/Referrals: Nikko Tejeda CRNP [Primary Care Provider] - 03/02/24 8:20 am Diet: Heart Healthy Addtl Attending Provider Instructions: - Advised to follow-up with PCP in 1 week - Advised to keep the Eliquis on hold until cleared by PCP Pending Studies at Discharge: No Stand-Alone Forms: [facility] Medications and DC Order Prescriptions: Continued Trelegy Ellipta 100-62.5-25 mcg blister with device 1 inh inhalation QAM Qty: 60 3RF albuterol sulfate 90 mcg/actuation HFA aerosol inhaler 2 puff inhalation Q6H PRN (Reason: shortness of breath or wheezing) Qty: 18 3RF allopurinol 300 mg tablet 300 mg PO QAM Qty: 90 1RF omeprazole 20 mg capsule,delayed release(DR/EC) 20 mg PO QAM multivitamin Tablet 1 tab PO DAILY metoprolol succinate 25 mg tablet extended release 24 hr 12.5 mg PO QAM Qty: 90 2RF losartan 100 mg tablet 100 mg PO QAM Qty: 90 1RF albuterol sulfate 1.25 mg/3 mL solution for nebulization 1.25 mg inhalation QID PRN (Reason: shortness of breath or wheezing) Qty: 75 2RF (DME) compressor, for nebulizer Device See Rx Instructions .Route Qty: 1 0RF Rx Instructions: As directed gabapentin 300 mg capsule 300 mg PO TID PRN (Reason: nerve pain) Qty: 270 3RF magnesium oxide 400 mg (241.3 mg magnesium) tablet 400 mg PO TID Held apixaban 5 mg tablet 5 mg PO BID Qty: 60 5RF Hold Instructions: Resume on 03/05/24. Hold until cleared by PCP in 1 week Discharge Orders: Discharge Order (Routine); Ordered 02/20/24 Ordered By: Juli Dorman Admission Data Admit Date/Time: 02/18/24 18:34 Attending Provider: Juli Dorman Admit Provider: Mahendra Sky Primary Care Provider: Nikko Tejeda Other Providers: Mahendra Sky; Freddy Buck Other Interventions: Discharge Summary Assessment (RN) Last Done: 02/20/24 13:28
== END 2024-02-20 14:37 | disposition home or self-care (01) ==
LOC: 2N 13:45 → ED 13:45 → SUATTDRO 18:34 → 2N 20:25